=== PATIENT | female | born 1950 | race Caucasian/White ===

== ENCOUNTER → 2017-06-12 11:01 | Outpatient (CLI) | payer MEDICAID, SELFPAY ==
[2017-06-12 12:23] LABS: Absolute Lymphocyte Count 2.63 X10^3/ul (0.83-4.51); Absolute Neutrophil Count 7.3 X10^3/uL (2.0-7.7); Basophil# 0.02 X10^3/uL; Basophil% 0.2 % (0-1); Eosinophil# 0.12 X10^3/uL; Eosinophils% 1.1 % (0-5); Hematocrit 38.2 % (37-47); Hemoglobin 12.1 g/dl (12.0-15.0); Lymphocyte # 2.63 X10^3/ul (4.0); Lymphocyte % 24.1 % (19-41); Mean Corp Hgb Conc 31.7 g/gl (32-36); Mean Corpuscular Hgb 29.1 pg (27.0-32.0); Mean Corpuscular Volume 91.8 fL (81-99); Monocyte# 0.76 X10^3/uL; Neutrophil # 7.34 X10^3/uL (2.7-7.7); Neutrophil % 67.3 % (47-70); Platelet Count 287 K/mm3 (150-450); RBC Distribution Width CV 14.5 % (11.6-14.6); RBC Distribution Width SD 47.4 fl (35.1-43.9); Red Blood Count 4.16 M/mm3 (4.2-5.4); White Blood Count 10.9 K/mm3 (4.4-11.0)
[2017-06-12 12:34] LABS: POSITIVE COUNT NO; POSITIVE DIFFERENTIAL NO; POSITIVE MORPHOLOGY NO
[2017-06-12 12:53] LABS: ALB/GLOB Ratio 0.6 RATIO (0.9-2.4); AST(SGOT) 11 U/L (15-37); Alanine Aminotransfer ALT/SGPT 18 U/L (13-56); Albumin, Serum 2.9 g/dL (3.2-5.0); Alkaline Phosphatase 102 U/L (45-117); Anion Gap 11 (5-15); BUN 10 mg/dL (7-18); BUN/Creat Ratio 10.6 RATIO (10-20); Calcium,Total 8.6 mg/dL (8.5-10.1); Chloride 104 mmol/L (98-107); Creatinine, Serum 0.95 mg/dL (0.55-1.02); EST Glomerular Filtration Rate 63 mL/min (>60); Est Glom Filt Rate - Afr Amer 76 mL/min (>60); Globulin 4.8 g/dL (2.2-4.2); Glucose 128 mg/dL (74-106); Potassium 3.8 mmol/L (3.5-5.1); Protein, Total 7.7 g/dL (6.4-8.2); Sodium Level 141 mmol/L (136-145); Thyroid Stim Hormone (TSH) 0.03 uIU/mL (0.358-3.74)
[2017-06-13 09:28] LABS: Hep C Antibodies <0.1 s/co ratio (0.0-0.9)
== END ==
PROVIDERS: Family Provider Family Medicine Geriatric Medicine; PCP Family Medicine Geriatric Medicine; Visit Provider Family Medicine Geriatric Medicine
DX: I10 Essential (primary) hypertension (principal); Z13.89 Encounter for screening for other disorder
CPT/HCPCS: 36415; 80053; 84443; 85025; 86803

== ENCOUNTER → 2017-06-16 12:55 | Outpatient (CLI) | payer MEDICAID, SELFPAY ==
--- NOTE | 2017-06-16 12:59 | RAD_ITS ---
STUDY: X-RAY - RIGHT KNEE REASON FOR EXAM: Female, 66 years old. Pain, fall, bruising lateral aspect of the knee TECHNIQUE: 4 view(s) of the knee. COMPARISON: 04/21/2016 FINDINGS: Total knee arthroplasty in anatomic alignment. No acute cortical disruption or osseous malalignment. Normal bone interface. Normal proximal tibiofibular articulation. There is a soft tissue prominence in the suprapatellar region suggesting a small volume joint effusion. The soft tissue structures are unremarkable. RAD/Knee 4 or More Views IMPRESSION: Total knee arthroplasty in anatomic alignment without acute osseous or hardware injury detected. Electronically Signed: Dejah Dumont MD at 9:02 EDT , Service support ,
== END ==
PROVIDERS: Family Provider Family Medicine Geriatric Medicine; PCP Family Medicine Geriatric Medicine; Visit Provider Family Medicine Geriatric Medicine
DX: M25.569 Pain in unspecified knee (principal)
CPT/HCPCS: 73564

== ENCOUNTER 2017-06-28 23:07 | Inpatient (IN) | payer MEDICAID, SELFPAY ==
[2017-06-28 23:07] VITALS: BP 144/98; PULSE 120; RESP 20; TEMP 36.9; O2SAT 99; BMI 51.5
--- NOTE | 2017-06-28 23:16 | ED.RN ---
unable to complete at this time. pt unable to verbalize medications. no other family available or aware of meds at this time.
--- NOTE | 2017-06-28 23:25 | RAD_ITS ---
XR Knee 3 Views INDICATION: FALL, KNEE PAIN COMPARISON: None TECHNIQUE: 3 views of the right knee FINDINGS: There is evidence of a right total knee arthroplasty with components in expected position. No significant joint effusion. No evidence of fracture. Marginal osteophytes are noted. RAD/Knee 3 Views IMPRESSION: Right total knee arthroplasty. No evidence of fracture. at 0012 Reported and signed by: Marie Moreira MD Electronically Signed: Marie Moreira MD at 23:10 EDT Tel , Service support ,
--- NOTE | 2017-06-28 23:25 | CT_ITS ---
CT Lower Extremity W/ Contrast INDICATION: S/P FALL TONIGHT, C/O LEFT THIGH PAIN WITH VISIBLE HEMATOMA, LEFT HIP PAIN ALSO, HX HTN, KS, HIP ORIF COMPARISON: None TECHNIQUE: High-resolution axial CT imaging of the left hip with coronal and sagittal reformatted images. Radiation dose of demonstration technique applied. FINDINGS: Marked soft tissue swelling is seen overlying the left hip and proximal femur with a subcutaneous approximately 8 cm hyperdense collection, compatible with a hematoma. There is evidence of a left total hip arthroplasty. The acetabulum and pelvis appear intact as far as seen. The components of the prosthesis appear properly positioned. A fracture is not identified. CT/Extremity Lower WITH Contrast IMPRESSION: Left total hip arthroplasty. No evidence of acute fracture. If symptoms persist, consider further evaluation with nuclear medicine bone scan. Large subcutaneous hematoma overlying the left hip and proximal femur. at 0033 Reported and signed by: Marie Moreira MD Electronically Signed: Marie Moreira MD at 23:31 EDT Tel , Service support ,
[2017-06-28 23:51] LABS: Absolute Lymphocyte Count 1.37 X10^3/ul (0.83-4.51); Absolute Neutrophil Count 7.6 X10^3/uL (2.0-7.7); Basophil# 0.02 X10^3/uL; Basophil% 0.2 % (0-1); Eosinophil# 0.13 X10^3/uL; Eosinophils% 1.3 % (0-5); Hematocrit 35.6 % (37-47); Lymphocyte # 1.37 X10^3/ul (4.0); Mean Corp Hgb Conc 30.9 g/gl (32-36); Mean Corpuscular Hgb 28.4 pg (27.0-32.0); Mean Platelet Vol. 9.3 fl (6.2-12.0); Monocyte# 0.66 X10^3/uL; Monocyte% 6.7 % (0-10); Neutrophil # 7.58 X10^3/uL (2.7-7.7); Neutrophil % 77.3 % (47-70); Platelet Count 229 K/mm3 (150-450); RBC Distribution Width CV 14.6 % (11.6-14.6); RBC Distribution Width SD 48.8 fl (35.1-43.9); Red Blood Count 3.87 M/mm3 (4.2-5.4); White Blood Count 9.8 K/mm3 (4.4-11.0)
[2017-06-28 23:52] LABS: POSITIVE COUNT NO; POSITIVE DIFFERENTIAL NO; POSITIVE MORPHOLOGY NO
[2017-06-29] VITALS (15 sets, daily range): BP systolic 108–147; BP diastolic 63–128; PULSE 72–101; RESP 16–20; TEMP 36.6–37.3; O2SAT 96–100; BMI 49.9; BMI 50.0
--- NOTE | 2017-06-29 00:11 | EKG12_ITS ---
Test Reason : FALL Blood Pressure : / mmHG Vent. Rate : 102 BPM Atrial Rate : 054 BPM P-R Int : 000 ms QRS Dur : 082 ms QT Int : 328 ms P-R-T Axes : 000 -01 066 degrees QTc Int : 427 ms Atrial fibrillation Nonspecific T wave abnormality Abnormal ECG Confirmed by COLE COWART, FERCHO ([id number]), assistant editor MARCIAL GUILLEN ([id number] on 07/04/2017 9:01:13 AM Referred By: [email or web address] Confirmed By:FERCHO GALVAN MD
--- NOTE | 2017-06-29 00:18 | RAD_ITS ---
XR Chest 1 View INDICATION: A-FIBCHRONIC COUGH COMPARISON: September 21, 2015 TECHNIQUE: Frontal view of the chest FINDINGS: The heart size is enlarged. Bilateral hilar regions are prominent. There is no evidence focalconsolidation or pleural effusion. Osseous structures are unremarkable. RAD/Chest 1 View (Portable) IMPRESSION: Mild cardiomegaly. Bilateral hilar regions appear prominent, unchanged compared to 2016. at 0055 Reported and signed by: Marie Moreira MD Electronically Signed: Marie Moreira MD at 23:53 EDT Tel , Service support ,
[2017-06-29 00:20] LABS: Anion Gap 9 (5-15); BUN 12 mg/dL (7-18); BUN/Creat Ratio 11.7 RATIO (10-20); Calcium,Total 8.7 mg/dL (8.5-10.1); Chloride 108 mmol/L (98-107); Creatinine, Serum 1.03 mg/dL (0.55-1.02); EST Glomerular Filtration Rate 57 mL/min (>60); Est Glom Filt Rate - Afr Amer 69 mL/min (>60); Estimated Creatinine Clearance 45.65 ml/min; Glucose 197 mg/dL (74-106); Potassium 3.7 mmol/L (3.5-5.1); Sodium Level 145 mmol/L (136-145)
[2017-06-29 00:31] LABS: Prothrombin Time (Protime)PT. 13.5 SECONDS (11.7-14.9)
--- NOTE | 2017-06-29 00:41 | ED.VISSUMM ---
- ER Visit Summary Date of Service: 06/29/17 Chief Complaint: Fall History of Present Illness: The patient is a 66 F who presents after a fall. She has a history of diabetes hypertension and hyperlipidemia. She had a same level fall. She uses a walker. Her walker tipped. She denies any head injury or loss of consciousness. She complains of right knee pain as well as left thigh and buttock pain and noticed a large area of swelling on her posterior left thigh. She otherwise denies any recent illness. No fever chest pain shortness of breath vomiting diarrhea or rash. Physical Examination: Afebrile initial heart rate 120 Heart is irregular and tachycardic Lungs are clear Abdomen soft Active full range of motion ?4 extremities she does have some tenderness of the right knee and a large left thigh hematoma Skin tear to right forearm GCS of 15 with no focal or lateralizing neurological deficits Test Results: EKG shows atrial fibrillation at a rate of 102. Laboratory studies notable for hemoglobin 11.0. Creatinine 1.03. INR troponin pending at the time of this dictation. Knee x-ray shows a prior right total knee arthroplasty. Chest x-ray showed no acute process on my review. CT of the lower extremity shows prior left total hip arthroplasty and a large subcutaneous hematoma measuring 8 cm. Emergency Department Course and Treatment: I was concerned about the patient's large thigh hematoma. A CT was obtained to define dimensions. Her hemoglobin is 11. She was noted to have an irregular tachycardic rhythm and EKG was obtained which shows A. fib at rate of 102. She denies history of atrial fibrillation. Her heart rate has ranged from 105-120. IV metoprolol has been ordered. Her chads 2 score is 2 however I would defer on anticoagulation given her new thigh hematoma and would monitor hemoglobins and the size of the hematoma before initiating anticoagulation. She was discussed with the hospitalist and will be admitted. Treatment Plan: [] Disposition: Admit Impression: New onset atrial fibrillation with RVR Left thigh hematoma This note was generated with Figure 1 dictation software. It may contain incorrect words, spelling, and punctuation that were not noted in review of the chart prior to signing ED Disposition - Plan for ED Patient: Chief Complaint: Fall Referrals: Marito De La Torre Chi, MD [Primary Care Provider] -
[2017-06-29] MEDS: Metoprolol Tartrate 5 MG/5 ML Vial IV (00:54)
--- NOTE | 2017-06-29 00:58 | PCM.HP.STD ---
Problem List (1) Hypothyroidism Status: Chronic (2) Morbid obesity due to excess calories Status: Chronic (3) Persistent atrial fibrillation Status: Chronic (4) Nonrheumatic aortic (valve) stenosis Status: Chronic (5) Hypertension Status: Chronic (6) Diabetes mellitus type II, uncontrolled Status: Chronic (7) Hyperlipidemia Status: Chronic History of Present Illness Date of Admission: 06/29/17 Chief Complaint: Fall, left hip/left thigh pain. The patient is a 66 year old F with past medical history as mentioned above presented to the emergency room because of fall followed by left hip and left thigh pain. Patient uses walker at home and somehow, she lost her balance and she fell on her left buttock and she started having pain at the back of her left thigh. She described this pain as sharp pain, 7 out of 10 in severity, it is around the left buttock and back of the left thigh, not radiating, aggravated by movement or when her left thigh touches the floor of the bed and without other associated symptoms. She denied any prodromal symptoms before she had this fall such as chest pain, shortness of breath, dizziness, lightheadedness, syncope or presyncope. She denied abdominal pain, nausea vomiting. She denies cough or sputum production. In the emergency room, she was noted to be in A. fib with RVR, heart rate has been jumping from 105-130s, blood pressure was stable and her pulse ox was 99% on room air. Her routine blood work is remarkable for chronic anemia, hemoglobin of 11 g/dL, otherwise unremarkable. Troponin is negative. EKG revealed A. fib with RVR, rate of around 107, no acute ischemic changes. Pro time and INR were normal. X-ray of the right knee revealed no acute fractures, revealed right total knee replacement. CT scan of the left lower extremity revealed large subcutaneous hematoma of the left hip and proximal femur measuring about 8 cm without evidence of acute fractures or dislocations. She is being admitted for mechanical fall complicated by large subcutaneous hematoma of the left hip/left proximal femur and also because of A. fib with RVR. Past Medical History Past Medical History (Chronic Problems): Chronic Problems Hypothyroidism (Chronic) Morbid obesity due to excess calories (Chronic) Persistent atrial fibrillation (Chronic) Nonrheumatic aortic (valve) stenosis (Chronic) Nonrheumatic pulmonary valve insufficiency (Chronic) Hypertension (Chronic) Diabetes mellitus type II, uncontrolled (Chronic) Hyperlipidemia (Chronic) Allergies bee venom protein (honey bee) Allergy (Verified 06/28/17 23:10) Swelling oxytetracycline [From Terramycin] Allergy (Verified 06/28/17 23:10) Unknown oxytetracycline HCl [From Terramycin] Allergy (Verified 06/28/17 23:10) Unknown Penicillins Allergy (Verified 06/28/17 23:10) Other Sulfa (Sulfonamide Antibiotics) Allergy (Verified 06/28/17 23:10) Other Bleach (Sodium Hypochlorite) Adverse Reaction (Verified 06/28/17 23:10) Nausea/Vom/Diarrhea ASPERTANE Allergy (Uncoded 06/28/17 23:10) Food Allergy Home Medications: Ambulatory Orders Medication Instructions Recorded Amitriptyline HCl [Elavil] 25 mg PO DAILY 09/21/15 Ergocalciferol [Vitamin D] 50,000 unit PO Q7D 09/21/15 Furosemide [Lasix] 20 mg PO DAILY 09/21/15 Levothyroxine Sodium [Synthroid] 137 mcg PO DAILY 09/21/15 Lorazepam [Ativan] 1 mg PO DAILY 09/21/15 Meclizine HCl [Antivert] 25 mg PO TID PRN PRN 09/21/15 Metformin HCl [Metformin HCl ER] 1,000 mg PO BID 09/21/15 Metoprolol Tartrate [Lopressor 25 mg PO DAILY 09/21/15 (Beta Esvin)] Omeprazole [Prilosec] 20 mg PO DAILY 09/21/15 Potassium Chloride [K-Tab ER] 20 meq PO DAILY 09/21/15 traZODone [Desyrel] 100 mg PO QHS 09/21/15 Atorvastatin Calcium [Lipitor] 40 mg PO DAILY 06/28/16 Levetiracetam 500 mg PO BID 06/28/16 Meloxicam [Mobic] 7.5 mg PO DAILY 06/28/16 Venlafaxine HCl [Effexor] 75 mg PO BID 06/28/16 Glimepiride [Amaryl] 4 mg PO BID 10/01/16 Nystatin Powder [Mycostatin Powder] 1 applic TOPICAL BID PRN PRN 10/01/16 Sennosides/Docusate Sodium 2 tab PO BID 10/01/16 [Doc-Q-Lax Tablet] Surgical History: appendectomy, cholecystectomy, hysterectomy, total hip arthroplasty, total knee arthroplasty Psychiatric History: No pertinent psych hx Smoking Status: Never smoker Alcohol: None Drugs: None - *Family History Maternal History Items: No pertinent history Paternal History Items: No pertinent history Review of Systems Constitutional: Denies: Anorexia, Chills, Fever, Weakness Eyes: Denies: Blurred vision, Double vision, Drainage, Redness HEENT: Denies: Difficulty Hearing, Ear Pain, Eye Pain, Nasal Congestion, Sore Throat Cardiovascular: Denies: Chest Pain, Chest Pressure, Chest Tightness, Edema, Heaviness, Light Headedness, Palpitations, Syncope Respiratory: Denies: Cough, Pleuritic Pain, Shortness of Breath, Sputum production, Wheezing Gastrointestinal: Denies: Abdominal Pain, Constipation, Diarrhea, Nausea, Vomiting Genitourinary: Reports: Incontinence. Denies: Dysuria, Frequency, Hematuria Musculoskeletal: Reports: Joint Pain, Muscle pain. Denies: Arm Pain, Back Pain Skin: Denies: Dryness, Rash Neurological: Denies: Balance problems, Double vision, Change in Speech, Confusion, Headaches, Incoordination, Numbness Psychiatric: Reports: Depression. Denies: Anxiety Endocrine: Denies: Change in Body Habitus, Polydipsia VTE Information - Inpt Only VTE Present on Admission: No VTE Mechan Device Prophylaxis: SCD's VTE Pharm Prophylaxis ordered?: No - Physical Exam General: Alert, Oriented x3, Cooperative, No apparent distress HEENT: Atraumatic, PERRLA, EOMI Oral: Moist Mucosa, No Gingival or Mucosal Lesions/ Ulcerations Neck: Supple, No JVD, Negative Carotid Bruits, Trachea Midline, Thyroid Normal Size and Texture Lungs: Clear to auscultation, No rhonchi, No wheeze, No rales, Diminished Cardiovascular: Normal S1, Normal S2, No murmurs, PMI Normal, Irregular Rate, Tachycardic Abdomen: Bowel Sounds Present, Soft, Non Tender, Non-Distended, No Hepato-splenomegaly, Obese Extremities: No clubbing, No cyanosis, Edema - Trace edema., - - Large subcutaneous hematoma on the posterior aspect of the left thigh measuring about 6 x 8 cm, firm to palpation with overlying bruises. Lymphatic: No Cervical, Supraclavicular, or Inguinal Adenopathy Neurological: Cranial nerves II-XII grossly intact, Motor Exam 5/5 strength throughout Psych/Mental Status: Normal Affect, Appropriate, Alert and oriented to time, place, person, mood and affect Vital Signs Temp Pulse Resp BP Pulse Ox 98.4 F 101 H 20 H 147/128 H 98 06/28/17 23:07 06/29/17 00:55 06/29/17 00:55 06/29/17 00:55 06/29/17 00:55 Oxygen Delivery Method Room Air Weight: 291 lb 0.163 oz Body Mass Index (BMI) 51.5 Finger Stick Blood Glucose 128 Laboratory Tests Past 24 Hrs 06/28/17 06/28/17 06/28/17 23:38 23:38 23:38 WBC 9.8 RBC 3.87 L Hgb 11.0 L Hct 35.6 L MCV 92.0 MCH 28.4 MCHC 30.9 L RDW 14.6 RDW Differential 48.8 H Plt Count 229 MPV 9.3 Immature Gran % (Auto) 0.500 Neut % (Auto) 77.3 H Lymph % (Auto) 14.0 L Pierce % (Auto) 6.7 Eos % (Auto) 1.3 Baso % (Auto) 0.2 Absolute Neuts (auto) 7.6 Absolute Lymphs (auto) 1.37 Total Counted Not Reportable PT 13.5 INR 1.0 Sodium 145 Potassium 3.7 Chloride 108 H Carbon Dioxide 28.0 Anion Gap 9 BUN 12 Creatinine 1.03 H Estim Creat Clear Calc 45.65 Est GFR (MDRD) Af Amer 69 Est GFR (MDRD) Non-Af 57 L BUN/Creatinine Ratio 11.7 Glucose 197 H Calcium 8.7 Troponin I 06/28/17 23:38 WBC RBC Hgb Hct MCV MCH MCHC RDW RDW Differential Plt Count MPV Immature Gran % (Auto) Neut % (Auto) Lymph % (Auto) Pierce % (Auto) Eos % (Auto) Baso % (Auto) Absolute Neuts (auto) Absolute Lymphs (auto) Total Counted PT INR Sodium Potassium Chloride Carbon Dioxide Anion Gap BUN Creatinine Estim Creat Clear Calc Est GFR (MDRD) Af Amer Est GFR (MDRD) Non-Af BUN/Creatinine Ratio Glucose Calcium Troponin I < 0.02 Clinical Impression(s) from Imaging Studies Knee X-Ray 06/28/17 23:25 IMPRESSION: Right total knee arthroplasty. No evidence of fracture. at 0012 Reported and signed by: Marie Moreira MD Electronically Signed: Marie Moreira MD at 23:10 EDT Tel , Service support , Lower Extremity CT 06/28/17 23:25 IMPRESSION: Left total hip arthroplasty. No evidence of acute fracture. If symptoms persist, consider further evaluation with nuclear medicine bone scan. Large subcutaneous hematoma overlying the left hip and proximal femur. at 0033 Reported and signed by: Marie Moreira MD Electronically Signed: Marie Moreira MD at 23:31 EDT Tel , Service support , Chest X-Ray 06/29/17 00:18 IMPRESSION: Mild cardiomegaly. Bilateral hilar regions appear prominent, unchanged compared to 2016. at 0055 Reported and signed by: Marie Moreira MD Electronically Signed: Marie Moreira MD at 23:53 EDT Tel , Service support , Assessment/Plan This is a 66 years old female patient presented to the emergency room because of fall and left hip/left thigh pain, found to have large subcutaneous hematoma of the left hip/left proximal femur and also found to have A. fib with RVR. #1 mechanical fall/large subcutaneous hematoma of the left hip/left proximal femur: Secondary to mechanical fall without prodromal symptoms. She was found to be in A. fib with RVR after arrival to ER and she was asymptomatic with it. CT scan of the left lower extremity reviewed as above, no acute fractures. X-ray of the right knee showed no acute fractures as well. Patient's hemoglobin is stable at her baseline. Her pro time, INR and platelet counts are normal. Plan: Admit to PCU, cardiac monitoring, IV morphine as needed for pain, Tylenol as needed, general surgery consult for possible evacuation, repeat CBC and BMP tomorrow morning, PT OT evaluation and treat. #2 A. fib with RVR: She does have history of atrial fibrillation and she underwent cardioversion on Jul, 2015. I am not sure if she has been under control since then. In the ER, heart rate has been significantly fluctuating from 105 up to 130. EKG reviewed, revealed A. fib with RVR, no acute ischemic changes. First troponin is negative. Plan: Cardiac monitoring, serial cardiac enzymes, 2D echocardiogram, check serum TSH, continue p.o. metoprolol and start IV metoprolol as needed for rate control, replace electrolytes as appropriate, cardiology consult. Her [id number] score for atrial fibrillation stroke risk is three-point and she is at moderate to high risk and she is a candidate for anticoagulation but at this time with the large subcutaneous hematoma, anticoagulation is contraindicated. #3 type 2 diabetes mellitus: ADA diet, Accu-Cheks, insulin sliding scale, continue home medication when home medication list updated. #4 hypertension: Blood pressure stable, continue metoprolol. #5 hypothyroidism: Continue levothyroxine, check TSH. #6 history of atrial fibrillation: Status post cardioversion in Jul, 2015, plan as above. #7 DVT prophylaxis: SCDs. This note was generated with Baloonr dictation software. It may contain incorrect words, spelling, and punctuation that were not noted in checking the note before signing. Code Visit Inpatient E&M: 85116 Init Hosp L3
--- NOTE | 2017-06-29 01:05 | HP.PCM_ITS ---
Problem List (1) Hypothyroidism Status: Chronic (2) Morbid obesity due to excess calories Status: Chronic (3) Persistent atrial fibrillation Status: Chronic (4) Nonrheumatic aortic (valve) stenosis Status: Chronic (5) Hypertension Status: Chronic (6) Diabetes mellitus type II, uncontrolled Status: Chronic (7) Hyperlipidemia Status: Chronic History of Present Illness Date of Admission: 06/29/17 Chief Complaint: Fall, left hip/left thigh pain. The patient is a 66 year old F with past medical history as mentioned above presented to the emergency room because of fall followed by left hip and left thigh pain. Patient uses walker at home and somehow, she lost her balance and she fell on her left buttock and she started having pain at the back of her left thigh. She described this pain as sharp pain, 7 out of 10 in severity, it is around the left buttock and back of the left thigh, not radiating, aggravated by movement or when her left thigh touches the floor of the bed and without other associated symptoms. She denied any prodromal symptoms before she had this fall such as chest pain, shortness of breath, dizziness, lightheadedness, syncope or presyncope. She denied abdominal pain, nausea vomiting. She denies cough or sputum production. In the emergency room, she was noted to be in A. fib with RVR, heart rate has been jumping from 105-130s, blood pressure was stable and her pulse ox was 99% on room air. Her routine blood work is remarkable for chronic anemia, hemoglobin of 11 g/dL, otherwise unremarkable. Troponin is negative. EKG revealed A. fib with RVR, rate of around 107, no acute ischemic changes. Pro time and INR were normal. X-ray of the right knee revealed no acute fractures, revealed right total knee replacement. CT scan of the left lower extremity revealed large subcutaneous hematoma of the left hip and proximal femur measuring about 8 cm without evidence of acute fractures or dislocations. She is being admitted for mechanical fall complicated by large subcutaneous hematoma of the left hip/left proximal femur and also because of A. fib with RVR. Past Medical History Past Medical History (Chronic Problems): Chronic Problems Hypothyroidism (Chronic) Morbid obesity due to excess calories (Chronic) Persistent atrial fibrillation (Chronic) Nonrheumatic aortic (valve) stenosis (Chronic) Nonrheumatic pulmonary valve insufficiency (Chronic) Hypertension (Chronic) Diabetes mellitus type II, uncontrolled (Chronic) Hyperlipidemia (Chronic) Allergies bee venom protein (honey bee) Allergy (Verified 06/28/17 23:10) Swelling oxytetracycline [From Terramycin] Allergy (Verified 06/28/17 23:10) Unknown oxytetracycline HCl [From Terramycin] Allergy (Verified 06/28/17 23:10) Unknown Penicillins Allergy (Verified 06/28/17 23:10) Other Sulfa (Sulfonamide Antibiotics) Allergy (Verified 06/28/17 23:10) Other Bleach (Sodium Hypochlorite) Adverse Reaction (Verified 06/28/17 23:10) Nausea/Vom/Diarrhea ASPERTANE Allergy (Uncoded 06/28/17 23:10) Food Allergy Home Medications: Ambulatory Orders Medication Instructions Recorded Amitriptyline HCl [Elavil] 25 mg PO DAILY 09/21/15 Ergocalciferol [Vitamin D] 50,000 unit PO Q7D 09/21/15 Furosemide [Lasix] 20 mg PO DAILY 09/21/15 Levothyroxine Sodium [Synthroid] 137 mcg PO DAILY 09/21/15 Lorazepam [Ativan] 1 mg PO DAILY 09/21/15 Meclizine HCl [Antivert] 25 mg PO TID PRN PRN 09/21/15 Metformin HCl [Metformin HCl ER] 1,000 mg PO BID 09/21/15 Metoprolol Tartrate [Lopressor 25 mg PO DAILY 09/21/15 (Beta Esvin)] Omeprazole [Prilosec] 20 mg PO DAILY 09/21/15 Potassium Chloride [K-Tab ER] 20 meq PO DAILY 09/21/15 traZODone [Desyrel] 100 mg PO QHS 09/21/15 Atorvastatin Calcium [Lipitor] 40 mg PO DAILY 06/28/16 Levetiracetam 500 mg PO BID 06/28/16 Meloxicam [Mobic] 7.5 mg PO DAILY 06/28/16 Venlafaxine HCl [Effexor] 75 mg PO BID 06/28/16 Glimepiride [Amaryl] 4 mg PO BID 10/01/16 Nystatin Powder [Mycostatin Powder] 1 applic TOPICAL BID PRN PRN 10/01/16 Sennosides/Docusate Sodium 2 tab PO BID 10/01/16 [Doc-Q-Lax Tablet] Surgical History: appendectomy, cholecystectomy, hysterectomy, total hip arthroplasty, total knee arthroplasty Psychiatric History: No pertinent psych hx Smoking Status: Never smoker Alcohol: None Drugs: None - *Family History Maternal History Items: No pertinent history Paternal History Items: No pertinent history Review of Systems Constitutional: Denies: Anorexia, Chills, Fever, Weakness Eyes: Denies: Blurred vision, Double vision, Drainage, Redness HEENT: Denies: Difficulty Hearing, Ear Pain, Eye Pain, Nasal Congestion, Sore Throat Cardiovascular: Denies: Chest Pain, Chest Pressure, Chest Tightness, Edema, Heaviness, Light Headedness, Palpitations, Syncope Respiratory: Denies: Cough, Pleuritic Pain, Shortness of Breath, Sputum production, Wheezing Gastrointestinal: Denies: Abdominal Pain, Constipation, Diarrhea, Nausea, Vomiting Genitourinary: Reports: Incontinence. Denies: Dysuria, Frequency, Hematuria Musculoskeletal: Reports: Joint Pain, Muscle pain. Denies: Arm Pain, Back Pain Skin: Denies: Dryness, Rash Neurological: Denies: Balance problems, Double vision, Change in Speech, Confusion, Headaches, Incoordination, Numbness Psychiatric: Reports: Depression. Denies: Anxiety Endocrine: Denies: Change in Body Habitus, Polydipsia VTE Information - Inpt Only VTE Present on Admission: No VTE Mechan Device Prophylaxis: SCD's VTE Pharm Prophylaxis ordered?: No - Physical Exam General: Alert, Oriented x3, Cooperative, No apparent distress HEENT: Atraumatic, PERRLA, EOMI Oral: Moist Mucosa, No Gingival or Mucosal Lesions/ Ulcerations Neck: Supple, No JVD, Negative Carotid Bruits, Trachea Midline, Thyroid Normal Size and Texture Lungs: Clear to auscultation, No rhonchi, No wheeze, No rales, Diminished Cardiovascular: Normal S1, Normal S2, No murmurs, PMI Normal, Irregular Rate, Tachycardic Abdomen: Bowel Sounds Present, Soft, Non Tender, Non-Distended, No Hepato- splenomegaly, Obese Extremities: No clubbing, No cyanosis, Edema - Trace edema., - - Large subcutaneous hematoma on the posterior aspect of the left thigh measuring about 6 x 8 cm, firm to palpation with overlying bruises. Lymphatic: No Cervical, Supraclavicular, or Inguinal Adenopathy Neurological: Cranial nerves II-XII grossly intact, Motor Exam 5/5 strength throughout Psych/Mental Status: Normal Affect, Appropriate, Alert and oriented to time, place, person, mood and affect Vital Signs Temp Pulse Resp BP Pulse Ox 98.4 F 101 H 20 H 147/128 H 98 06/28/17 23:07 06/29/17 00:55 06/29/17 00:55 06/29/17 00:55 06/29/17 00:55 Oxygen Delivery Method Room Air Weight: 291 lb 0.163 oz Body Mass Index (BMI) 51.5 Finger Stick Blood Glucose 128 Laboratory Tests Past 24 Hrs 06/28/17 06/28/17 06/28/17 23:38 23:38 23:38 WBC 9.8 RBC 3.87 L Hgb 11.0 L Hct 35.6 L MCV 92.0 MCH 28.4 MCHC 30.9 L RDW 14.6 RDW Differential 48.8 H Plt Count 229 MPV 9.3 Immature Gran % (Auto) 0.500 Neut % (Auto) 77.3 H Lymph % (Auto) 14.0 L Nicholas % (Auto) 6.7 Eos % (Auto) 1.3 Baso % (Auto) 0.2 Absolute Neuts (auto) 7.6 Absolute Lymphs (auto) 1.37 Total Counted Not Reportable PT 13.5 INR 1.0 Sodium 145 Potassium 3.7 Chloride 108 H Carbon Dioxide 28.0 Anion Gap 9 BUN 12 Creatinine 1.03 H Estim Creat Clear Calc 45.65 Est GFR (MDRD) Af Amer 69 Est GFR (MDRD) Non-Af 57 L BUN/Creatinine Ratio 11.7 Glucose 197 H Calcium 8.7 Troponin I 06/28/17 23:38 WBC RBC Hgb Hct MCV MCH MCHC RDW RDW Differential Plt Count MPV Immature Gran % (Auto) Neut % (Auto) Lymph % (Auto) Nicholas % (Auto) Eos % (Auto) Baso % (Auto) Absolute Neuts (auto) Absolute Lymphs (auto) Total Counted PT INR Sodium Potassium Chloride Carbon Dioxide Anion Gap BUN Creatinine Estim Creat Clear Calc Est GFR (MDRD) Af Amer Est GFR (MDRD) Non-Af BUN/Creatinine Ratio Glucose Calcium Troponin I < 0.02 Clinical Impression(s) from Imaging Studies Knee X-Ray 06/28/17 23:25 IMPRESSION: Right total knee arthroplasty. No evidence of fracture. at 0012 Reported and signed by: Marie Moreira MD Electronically Signed: Marie Moreira MD at 23:10 EDT Tel , Service support , Lower Extremity CT 06/28/17 23:25 IMPRESSION: Left total hip arthroplasty. No evidence of acute fracture. If symptoms persist, consider further evaluation with nuclear medicine bone scan. Large subcutaneous hematoma overlying the left hip and proximal femur. at 0033 Reported and signed by: Marie Moreira MD Electronically Signed: Marie Moreira MD at 23:31 EDT Tel , Service support , Chest X-Ray 06/29/17 00:18 IMPRESSION: Mild cardiomegaly. Bilateral hilar regions appear prominent, unchanged compared to 2016. at 0055 Reported and signed by: Marie Moreira MD Electronically Signed: Marie Moreira MD at 23:53 EDT Tel , Service support , Assessment/Plan This is a 66 years old female patient presented to the emergency room because of fall and left hip/left thigh pain, found to have large subcutaneous hematoma of the left hip/left proximal femur and also found to have A. fib with RVR. #1 mechanical fall/large subcutaneous hematoma of the left hip/left proximal femur: Secondary to mechanical fall without prodromal symptoms. She was found to be in A. fib with RVR after arrival to ER and she was asymptomatic with it. CT scan of the left lower extremity reviewed as above, no acute fractures. X- ray of the right knee showed no acute fractures as well. Patient's hemoglobin is stable at her baseline. Her pro time, INR and platelet counts are normal. Plan: Admit to PCU, cardiac monitoring, IV morphine as needed for pain, Tylenol as needed, general surgery consult for possible evacuation, repeat CBC and BMP tomorrow morning, PT OT evaluation and treat. #2 A. fib with RVR: She does have history of atrial fibrillation and she underwent cardioversion on Jul, 2015. I am not sure if she has been under control since then. In the ER, heart rate has been significantly fluctuating from 105 up to 130. EKG reviewed, revealed A. fib with RVR, no acute ischemic changes. First troponin is negative. Plan: Cardiac monitoring, serial cardiac enzymes, 2D echocardiogram, check serum TSH, continue p.o. metoprolol and start IV metoprolol as needed for rate control, replace electrolytes as appropriate, cardiology consult. Her [id number] score for atrial fibrillation stroke risk is three-point and she is at moderate to high risk and she is a candidate for anticoagulation but at this time with the large subcutaneous hematoma, anticoagulation is contraindicated. #3 type 2 diabetes mellitus: ADA diet, Accu-Cheks, insulin sliding scale, continue home medication when home medication list updated. #4 hypertension: Blood pressure stable, continue metoprolol. #5 hypothyroidism: Continue levothyroxine, check TSH. #6 history of atrial fibrillation: Status post cardioversion in Jul, 2015, plan as above. #7 DVT prophylaxis: SCDs. This note was generated with [employer] dictation software. It may contain incorrect words, spelling, and punctuation that were not noted in checking the note before signing. Code Visit Inpatient E&M: 39305 Init Hosp L3
--- NOTE | 2017-06-29 01:11 | ECHOD_ITS ---
Reason For Study: A. fib/flutter Procedure This was a 2D Doppler, Color Flow transthoracic echocardiogram. Exam performed portable in patient room. Left Ventricle Normal LV size. Left ventricular systolic function is normal. The estimated ejection fraction is 55 %. Unable to assess diastolic dysfunction. No regional wall motion abnormalities noted. Right Ventricle Normal RV size. Normal systolic function. Atria Normal left atrium. Normal right atrium. Mitral Valve Mitral valve not well visualized. Tricuspid Valve The tricuspid valve is not well visualized. Mild (1+) tricuspid valve insufficiency. Pulmonary artery systolic pressure is 28 mmHg. Aortic Valve The aortic valve is not well visualized. Pulmonic Valve Normal pulmonic valve. Mild (1+) pulmonic valve insufficiency. Great Vessels Normal aortic root. The pulmonary artery is normal size. Normal inferior vena cava. Pericardium/Pleural No pericardial effusion. Medication Diluted definity 4ml given slow IV push to enhance endocardial definition. MMode/2D Measurements & Calculations Ao root diam: 3.2 cm LA dimension: 4.6 cm Doppler Measurements & Calculations MV E max avni: 137.2 cm/sec Ao V2 max: 183.9 cm/sec LV V1 max: 99.0 cm/sec Ao max P.6 mmHg LV V1 max P.0 mmHg PA V2 max: 110.0 cm/sec TR max avni: 245.4 cm/sec TR max P.1 mmHg Interpretation Summary Normal LV size. Left ventricular systolic function is normal. The estimated ejection fraction is 55 %. Unable to assess diastolic dysfunction. Mild (1+) tricuspid valve insufficiency. Pulmonary artery systolic pressure is 28 mmHg. Contrast injection was performed. Ordering Physician: Michael Smith Referring Physician: Marito De La Torre Chi Performed By: Kim Keenan RDCS
[2017-06-29 01:36] LABS: Thyroid Stim Hormone (TSH) 0.12 uIU/mL (0.358-3.74)
[2017-06-29] MEDS: 0.9% Normal Saline 1,000 ML 75 ML IV (02:11)
[2017-06-29 07:06] LABS: Bedside Glucose 187 mg/dL (70-110)
--- NOTE | 2017-06-29 08:24 | PCM.CONS.C ---
Reason for Consult Date of Consultation: 06/29/17 Reason for Consultation: Atrial fibrillation. History of Present Illness: The patient is a 66 year old F with past medical history as mentioned above presented to the emergency room because of fall followed by left hip and left thigh pain. Patient uses walker at home and somehow, she lost her balance and she fell on her left buttock and she started having pain at the back of her left thigh. She described this pain as sharp pain, 7 out of 10 in severity, it is around the left buttock and back of the left thigh, not radiating, aggravated by movement or when her left thigh touches the floor of the bed and without other associated symptoms. She denied any prodromal symptoms before she had this fall such as chest pain, shortness of breath, dizziness, lightheadedness, syncope or presyncope. She denied abdominal pain, nausea vomiting. She denies cough or sputum production. In the emergency room, she was noted to be in A. fib with RVR, heart rate has been jumping from 105-130s, blood pressure was stable and her pulse ox was 99% on room air. Her routine blood work is remarkable for chronic anemia, hemoglobin of 11 g/dL, otherwise unremarkable. Troponin is negative. EKG revealed A. fib with RVR, rate of around 107, no acute ischemic changes. Pro time and INR were normal. X-ray of the right knee revealed no acute fractures, revealed right total knee replacement. CT scan of the left lower extremity revealed large subcutaneous hematoma of the left hip and proximal femur measuring about 8 cm without evidence of acute fractures or dislocations. She is being admitted for mechanical fall complicated by large subcutaneous hematoma of the left hip/left proximal femur and also because of A. fib with RVR. Cardiology was consulted to see her because of the atrial fibrillation. Past Medical History Allergies/Adverse Reactions: Allergies bee venom protein (honey bee) Allergy (Verified 06/28/17 23:10) Swelling oxytetracycline [From Terramycin] Allergy (Verified 06/28/17 23:10) Unknown oxytetracycline HCl [From Terramycin] Allergy (Verified 06/28/17 23:10) Unknown Penicillins Allergy (Verified 06/28/17 23:10) Other Sulfa (Sulfonamide Antibiotics) Allergy (Verified 06/28/17 23:10) Other Bleach (Sodium Hypochlorite) Adverse Reaction (Verified 06/28/17 23:10) Nausea/Vom/Diarrhea ASPERTANE Allergy (Uncoded 06/28/17 23:10) Food Allergy Home Medications: Ambulatory Orders Medication Instructions Recorded Amitriptyline HCl [Elavil] 25 mg PO DAILY 09/21/15 Ergocalciferol [Vitamin D] 50,000 unit PO Q7D 09/21/15 Furosemide [Lasix] 20 mg PO DAILY 09/21/15 Levothyroxine Sodium [Synthroid] 137 mcg PO DAILY 09/21/15 Lorazepam [Ativan] 1 mg PO DAILY 09/21/15 Meclizine HCl [Antivert] 25 mg PO TID PRN PRN 09/21/15 Metformin HCl [Metformin HCl ER] 1,000 mg PO BID 09/21/15 Metoprolol Tartrate [Lopressor 25 mg PO DAILY 09/21/15 (Beta Esvin)] Omeprazole [Prilosec] 20 mg PO DAILY 09/21/15 Potassium Chloride [K-Tab ER] 20 meq PO DAILY 09/21/15 traZODone [Desyrel] 100 mg PO QHS 09/21/15 Atorvastatin Calcium [Lipitor] 40 mg PO DAILY 06/28/16 Levetiracetam 500 mg PO BID 06/28/16 Meloxicam [Mobic] 7.5 mg PO DAILY 06/28/16 Venlafaxine HCl [Effexor] 75 mg PO BID 06/28/16 Glimepiride [Amaryl] 4 mg PO BID 10/01/16 Nystatin Powder [Mycostatin Powder] 1 applic TOPICAL BID PRN PRN 10/01/16 Sennosides/Docusate Sodium 2 tab PO BID 10/01/16 [Doc-Q-Lax Tablet] Past Medical History (Chronic Problems): Chronic Problems Hypothyroidism (Chronic) Morbid obesity due to excess calories (Chronic) Persistent atrial fibrillation (Chronic) Nonrheumatic aortic (valve) stenosis (Chronic) Nonrheumatic pulmonary valve insufficiency (Chronic) Hypertension (Chronic) Diabetes mellitus type II, uncontrolled (Chronic) Hyperlipidemia (Chronic) Surgical History: appendectomy, cholecystectomy, hysterectomy, total hip arthroplasty, total knee arthroplasty Psychiatric History: No pertinent psych hx - *Family History Maternal History Items: No pertinent history Paternal History Items: No pertinent history Smoking Status: Never smoker Alcohol: None Drugs: None Review of Systems - Review of Systems General: Denies: Fever, Night Sweats, Fatigue Cardiovascular: Denies: Chest Discomfort, Shortness of Breath, Orthopnea, PND, Peripheral Edema, Palpitations, Lightheadedness, Dizziness, Near Syncope, Syncope Respiratory: Denies: Cough, Sputum Production, Hemoptysis Gastrointestinal: Denies: Hematemesis, Hematochezia, Melena Genitourinary: Denies: Dysuria, Hematuria Skin: Denies: Rash Subjectve: Pleasant lady in no apparent distress Objective: Vital Signs Temp Pulse Resp BP Pulse Ox 98.3 F 93 18 140/69 H 99 06/29/17 02:26 06/29/17 07:11 06/29/17 02:26 06/29/17 02:27 06/29/17 02:26 Oxygen Delivery Method Room Air Weight: 282 lb 3.067 oz Body Mass Index (BMI) 49.9 Intake and Output for Last 24 Hours 06/27/17 06/28/17 06/29/17 23:59 23:59 23:59 Intake Total 275 / 275 Balance 275 / 275 General: Awake, Alert, Oriented x 3, Obese HEENT: PERRL, EOMI, Sclera Non Icteric Neck: Supple, Good ROM, No Lymph Node Enlargement Lungs: Clear to auscultation Cardiovascular: Irregular Rhythm, Normal S1, Normal S2, No Murmurs, No Rubs, No Gallops Vascular: No Carotid Bruits, Normal Femoral Pulses, Normal Radial Pulses, Normal Dorsalis Pedal Pulse, Normal Posterior Tibial Pulses Abdomen: Bowel Sounds Present, Soft, Non Tender, No HSM, No Organomegaly Extremities: No Cyanosis, No Clubbing, No edema Neurological: No Focal Motor or Sensory Deficit 06/29/17 03:48: Troponin I < 0.02 06/29/17 07:25: Troponin I < 0.02 Rhythm: EKG: Atrial fibrillation with rapid ventricular response rate of 107 bpm Assessment/Plan 1. Atrial fibrillation-rapid ventricular response rate duration unknown. Patient presented with a fall and was noted to be in atrial fibrillation unbeknownst to her. The duration is unclear. She does have evidence of a large subcutaneous hematoma and at this time I do agree that despite the fact that her chads vascular score is high her risk for bleeding is rather high and therefore anticoagulation will be contraindicated. An echocardiogram should be performed to assess her left ventricular function and she will be placed on the beta-esvin at a higher dose for rate control. Further recommendations will depend on the course of her leg hematoma and improvement. There is an apparent history of a previous cardioversion the patient says that she does not recollect this. 2. Hypertension. Patient appears to be well controlled at this particular time and no other changes will be made. Her beta blockers will be continued. 3. Obesity She probably has sleep apnea which may be contributing to the atrial fibrillation. This will need to be evaluated at some point. Thank you for allowing me to participate in the care of your patient. Please don't hesitate to call if any issues arise
[2017-06-29] MEDS: Metoprolol Tartrate 50 MG Tablet PO ×2 (08:30→22:04)
[2017-06-29 11:25] LABS: Bedside Glucose 138 mg/dL (70-110)
--- NOTE | 2017-06-29 14:59 | CASEMGMT ---
As per CM, pt has [employer] services at home. SW called [employer] in [facility], ([phone]), pt's nurse case manager is Ashlie Morgan, however she is out today. CASSY spoke w/operations and intelligence assistant Den, let her know pt is here in the hospital. Den states pt has the following services: [employer] for aide services, one hour on Monday and one hour on , [facility] [employer], social work counseling, and pull-ups. Pt also has an ERS button. If pt goes home on the weekend, CASSY can leave a message for Ashlie at [phone]. BELEN Enciso, FURNACE ATTENDANT
[2017-06-29 16:25] LABS: Bedside Glucose 147 mg/dL (70-110)
--- NOTE | 2017-06-29 17:05 | CCHN_ITS ---
Hospitalist Note The patient was admitted earlier today by Dr. Wilson and I reviewed his H& P. I also saw the patient, evaluated her and obtained relevant history, performed a clinical exam reviewed diagnostic data. e is a 66 years old female patient presented to the ED s/p fall and left hip/ left thigh pain, found to have large subcutaneous hematoma of the left thigh. Plan is to hold off on anticoagulation and monitor. We will monitor H&H
[2017-06-29 18:25] LABS: Hematocrit 35.2 % (37-47)
[2017-06-29] MEDS: Venlafaxine HCl 75 MG Tablet PO (22:03)
[2017-06-29] MEDS: Meclizine HCl 25 MG Tablet PO (22:03)
[2017-06-29] MEDS: Atorvastatin Calcium 80 MG Tablet PO (22:03)
[2017-06-29] MEDS: traZODone 100 MG Tablet PO (22:03)
[2017-06-29] MEDS: levETIRAcetam 500 MG Tablet PO (22:04)
[2017-06-29] MEDS: Amitriptyline 25 MG Tablet PO (22:04)
[2017-06-29] MEDS: 0.9% NaCl Peripheral Flush Adult/Peds IV (22:05)
[2017-06-29 22:41] LABS: Bedside Glucose 151 mg/dL (70-110)
[2017-06-30 02:36] VITALS: BP 140/77; PULSE 82; RESP 14; TEMP 37; O2SAT 97
[2017-06-30 03:03] VITALS: PULSE 74
[2017-06-30] MEDS: Levothyroxine 125 MCG Tablet PO (05:38)
[2017-06-30] MEDS: Meclizine HCl 25 MG Tablet PO (05:38)
[2017-06-30 06:04] LABS: Hematocrit 31.4 % (37-47); Hemoglobin 9.7 g/dl (12.0-15.0)
[2017-06-30 06:54] VITALS: PULSE 86
[2017-06-30 07:01] LABS: Bedside Glucose 150 mg/dL (70-110)
[2017-06-30] MEDS: Glimepiride 4 MG Tablet PO (07:56)
[2017-06-30 08:35] VITALS: BP 145/75; PULSE 75; RESP 16; TEMP 36.3; O2SAT 100
--- NOTE | 2017-06-30 09:06 | DS.PCM_ITS ---
Discharge Date and Diagnosis Date of Admission: 06/29/17 Date of Discharge: 06/30/17 - Secondary Discharge Diagnosis Chronic Problems Hypothyroidism (Chronic) Morbid obesity due to excess calories (Chronic) Persistent atrial fibrillation (Chronic) Nonrheumatic aortic (valve) stenosis (Chronic) Nonrheumatic pulmonary valve insufficiency (Chronic) Hypertension (Chronic) Diabetes mellitus type II, uncontrolled (Chronic) Hyperlipidemia (Chronic) Hospital Course and Treatment Summary of Care Provided: This is a 66 years old female patient presented to the ED s/p fall and left hip/ left thigh pain, found to have large subcutaneous hematoma of the left thigh. Her anticoagulation will monitor to H and H. Her hemoglobin dropped to 9.6 and she was started on oral iron she did not require blood transfusion. she continued to do well and was discharged home in stable condition. physical exam at the time of discharge; vital signs were stable. He was alert and oriented to time place and person. He did not appear to be any form of distress. S1 and S2 heard no murmur or gallop Lung exam was clear to auscultation with no adventitious sounds. Abdomen was soft nontender with normal bowel sounds. extremity exam did not reveal any edema, palpable pulses bilaterally. Neurologic exam was grossly intact. Home Medications: Medications to take at Discharge Amitriptyline HCl [Elavil] 25 mg PO QHS 09/21/15 Ergocalciferol [Vitamin D] 50,000 unit PO Q7D 09/21/15 Furosemide [Lasix] 20 mg PO DAILY 09/21/15 Levothyroxine Sodium [Synthroid] 125 mcg PO DAILY 09/21/15 Lorazepam [Ativan] 1 mg PO DAILY 09/21/15 Meclizine HCl [Antivert] 25 mg PO TID 09/21/15 Metformin HCl [Metformin HCl ER] 1,000 mg PO BID 09/21/15 Omeprazole [Prilosec] 20 mg PO DAILY 09/21/15 Potassium Chloride [K-Tab ER] 20 meq PO BID 09/21/15 traZODone [Desyrel] 100 mg PO QHS 09/21/15 Levetiracetam 500 mg PO BID 06/28/16 Meloxicam [Mobic] 7.5 mg PO DAILY 06/28/16 Venlafaxine HCl [Effexor] 75 mg PO BID 04/04/17 Glimepiride [Amaryl] 4 mg PO BID 10/01/16 Nystatin Powder [Mycostatin Powder] 1 applic TOPICAL BID PRN PRN 10/01/16 Sennosides/Docusate Sodium [Doc-Q-Lax Tablet] 1 tab PO BID 10/01/16 Albuterol IH (ProAir) [Proair Hfa] 2 puff INHALATION BID 06/29/17 Famotidine [Pepcid] 40 mg PO DAILY 06/29/17 Iron Polysaccharide Complex [Ferric X-150] 150 mg PO DAILY #30 cap 06/30/17 Oxycodone [Oxyir] 5 mg PO Q4H PRN PRN #20 tab 06/30/17 Following Prescrptions Were Given to Patient: Oxycodone [Oxyir] 5 mg PO Q4H PRN PRN #20 tab PRN Reason: Moderate Pain (pain scale 4-5) Iron Polysaccharide Complex [Ferric X-150] 150 mg PO DAILY #30 cap Primary Care Physician: Marito De La Torre Chi, MD [Primary Care Provider] - In 1 Week Medical Necessity - Tobacco Use Smoking Status: Never smoker Meaningful Use Info Meaningful Use Diagnoses (Choose all that apply): None applicable Code Visit OBSV E&M: 55037 Observation care discharge
--- NOTE | 2017-06-30 09:08 | PCM.PN.CARD ---
Subjectve: Patient seen and evaluated. Appears to be doing much better. Objective: Vital Signs Temp Pulse Resp BP Pulse Ox 97.4 F L 75 16 145/75 H 100 06/30/17 08:35 06/30/17 08:35 06/30/17 08:35 06/30/17 08:35 06/30/17 08:35 Oxygen Delivery Method Room Air Weight: 282 lb 3.067 oz Body Mass Index (BMI) 49.9 Intake and Output for Last 24 Hours 06/28/17 06/29/17 06/30/17 23:59 23:59 23:59 Intake Total 1775 60 60 Balance 1775 60 General: Awake, Alert, Oriented x 3 HEENT: PERRL, EOMI, Sclera Non Icteric Neck: Supple, Good ROM, No Lymph Node Enlargement Lungs: Clear to auscultation Cardiovascular: Irregular Rhythm, Normal S1, Normal S2, No Murmurs, No Rubs, No Gallops Vascular: No Carotid Bruits, Normal Femoral Pulses, Normal Radial Pulses, Normal Dorsalis Pedal Pulse, Normal Posterior Tibial Pulses Abdomen: Bowel Sounds Present, Soft, Non Tender, No HSM, No Organomegaly Extremities: No Cyanosis, No Clubbing, No edema Neurological: No Focal Motor or Sensory Deficit 06/29/17 13:40: Troponin I < 0.02 06/29/17 18:04: Hgb 11.0 L, Hct 35.2 L 06/30/17 05:35: Hgb 9.7 L, Hct 31.4 L Rhythm: EKG: ECHO: Stress Test: Cardiac Cath: PCI: CT Surgery: Holter monitor: EPS: PPM: CXR: Chest CT Scan: Medical Necessity - Tobacco Use Smoking Status: Never smoker Assessment/Plan 1. Atrial fibrillation-rapid ventricular response rate duration unknown. Patient presented with a fall and was noted to be in atrial fibrillation unbeknownst to her. The duration is unclear. She does have evidence of a large subcutaneous hematoma and at this time I do agree that despite the fact that her chads vascular score is high her risk for bleeding is rather high and therefore anticoagulation will be contraindicated. Further recommendations will depend on the course of her leg hematoma and improvement. There is an apparent history of a previous cardioversion the patient says that she does not recollect this. Echocardiogram demonstrated preserved left ventricular systolic function. She will be seen as an outpatient and then further recommendations made as to when to start anticoagulation and possible cardioversion. 2. Hypertension. Patient appears to be well controlled at this particular time and no other changes will be made. Her beta blockers will be continued. 3. Obesity She probably has sleep apnea which may be contributing to the atrial fibrillation. This will need to be evaluated at some point. Thank you for allowing me to participate in the care of your patient. Please don't hesitate to call if any issues arise
--- NOTE | 2017-06-30 09:10 | PCM.DC ---
You will use the following diet at home:: Regular Discharge Activity: Return to Normal Activity Allergies/Adverse Reactions: Allergies bee venom protein (honey bee) Allergy (Verified 06/28/17 23:10) Swelling oxytetracycline [From Terramycin] Allergy (Verified 06/28/17 23:10) Unknown oxytetracycline HCl [From Terramycin] Allergy (Verified 06/28/17 23:10) Unknown Penicillins Allergy (Verified 06/28/17 23:10) Other Sulfa (Sulfonamide Antibiotics) Allergy (Verified 06/28/17 23:10) Other Bleach (Sodium Hypochlorite) Adverse Reaction (Verified 06/28/17 23:10) Nausea/Vom/Diarrhea ASPERTANE Allergy (Uncoded 06/28/17 23:10) Food Allergy Medications to take at Discharge Amitriptyline HCl [Elavil] 25 mg PO QHS 09/21/15 Ergocalciferol [Vitamin D] 50,000 unit PO Q7D 09/21/15 Furosemide [Lasix] 20 mg PO DAILY 09/21/15 Levothyroxine Sodium [Synthroid] 125 mcg PO DAILY 09/21/15 Lorazepam [Ativan] 1 mg PO DAILY 09/21/15 Meclizine HCl [Antivert] 25 mg PO TID 09/21/15 Metformin HCl [Metformin HCl ER] 1,000 mg PO BID 09/21/15 Omeprazole [Prilosec] 20 mg PO DAILY 09/21/15 Potassium Chloride [K-Tab ER] 20 meq PO BID 09/21/15 traZODone [Desyrel] 100 mg PO QHS 09/21/15 Levetiracetam 500 mg PO BID 06/28/16 Meloxicam [Mobic] 7.5 mg PO DAILY 06/28/16 Venlafaxine HCl [Effexor] 75 mg PO BID 06/28/16 Glimepiride [Amaryl] 4 mg PO BID 10/01/16 Nystatin Powder [Mycostatin Powder] 1 applic TOPICAL BID PRN PRN 10/01/16 Sennosides/Docusate Sodium [Doc-Q-Lax Tablet] 1 tab PO BID 10/01/16 Albuterol IH (ProAir) [Proair Hfa] 2 puff INHALATION BID 06/29/17 Famotidine [Pepcid] 40 mg PO DAILY 06/29/17 Iron Polysaccharide Complex [Ferric X-150] 150 mg PO DAILY #30 cap 06/30/17 Oxycodone [Oxyir] 5 mg PO Q4H PRN PRN #20 tab 06/30/17 The following prescriptions were given: Oxycodone [Oxyir] 5 mg PO Q4H PRN PRN #20 tab PRN Reason: Moderate Pain (pain scale 4-5) Iron Polysaccharide Complex [Ferric X-150] 150 mg PO DAILY #30 cap Primary Care Physician: Marito De La Torre Chi, MD [Primary Care Provider] - In 1 Week Proposed Discharge Date: 06/30/17
[2017-06-30 09:46] VITALS: BP 145/75; PULSE 75
[2017-06-30] MEDS: levETIRAcetam 500 MG Tablet PO (09:46)
[2017-06-30] MEDS: Famotidine 20 MG Tablet 40 MG PO (09:46)
[2017-06-30] MEDS: Venlafaxine HCl 75 MG Tablet PO (09:46)
[2017-06-30] MEDS: Meloxicam 7.5 MG Tablet PO (09:46)
[2017-06-30] MEDS: Pantoprazole Sodium 20 MG Tablet PO (09:46)
[2017-06-30] MEDS: LORazepam 1 MG Tablet PO (09:46)
[2017-06-30] MEDS: Metoprolol Tartrate 50 MG Tablet PO (09:46)
--- NOTE | 2017-06-30 09:47 | CASEMGMT ---
Social Work Pt ready for d/c today. Met with pt in room and she is planning on returning home with continuation of passport services. Pt ex will be staying with her and transport her home. SW placed call to Passport manager case management Ashlie and informed her of pt d/c and she will arrange for services to restart. No further needs. DESIRE Miranda
--- NOTE | 2017-06-30 14:31 | CASEMGMT ---
Face to Face with patient for initial transition planning/care coordination assessment. FILOMENA BELTRAN introduced self and role at [facility], pt voices understanding and consents to assessment at this time. Pt is lying in bed in no distress at this time. Pt is A/O x4 at this time and answers all questions appropriately at this time. Care providers, pharmacy, and demographics verified. See attached link. Pt voices no further concerns/needs at this time. Advised pt to ask for CM if any further questions/concerns/needs arise, voices understanding. PLAN: [place] FILOMENA BELTRAN
--- NOTE | 2017-07-03 14:44 | CASEMGMT ---
FILOMENA BELTRAN Discharge Follow-up Phone Call: Date: 07/03/17 Time: 1450 Duration: 10 minutes Mrs. Concepcion reports feeling sore since leaving the hospital, but reports she has been able to walk without difficulty. FILOMENA BELTRAN noted on d/c instructions, patient was provided a prescription for OxyIr. FILOMENA BELTRAN asked if Mrs. Concepcion was able to obtain this medication for pain. Patient at first replied she was not given a script for pain medicine, then patient's spouse said yes you were, and I picked it up. Patient then reported she hasn't needed to take it because the pain isn't that bad. FILOMNEA BELTRAN inquired if patient or spouse had questions re: d/c instructions and both report no. Patient states she did not know she was supposed to follow-up with Dr. De La Torre and agrees to let FILOMENA BELTRAN call Dr. De La Torre's office to request an appnt. Patient's spouse asks that Dr. De La Torre's nursing secretary call him to schedule. FILOMENA BELTRAN left message for Dr. De La Torre's office to call patient with appnt time. The patient reports she will call Dr. De La Torre's office if she has any further healthcare questions or concerns. Sharee King BSN, RN-BC, CCM
== END 2017-06-30 11:27 | disposition home or self-care (01) | DRG 138 ==
LOC: ED 06-29 00:40 → PCU 06-29 00:54
PROVIDERS: Admitting Provider Hospitalist; Emergency Provider Emergency Medicine; Family Provider Family Medicine Geriatric Medicine; PCP Family Medicine Geriatric Medicine; Visit Provider Internal Medicine
DX: I48.1 Persistent atrial fibrillation (principal); I37.1 Nonrheumatic pulmonary valve insufficiency; E11.65 Type 2 diabetes mellitus with hyperglycemia; I35.0 Nonrheumatic aortic (valve) stenosis; S70.12XA Contusion of left thigh, initial encounter; W01.0XXA Fall on same level from slipping, tripping and stumbling without subsequent striking against object, initial encounter; E03.9 Hypothyroidism, unspecified; E78.5 Hyperlipidemia, unspecified; I10 Essential (primary) hypertension; E66.01 Morbid (severe) obesity due to excess calories; Z96.651 Presence of right artificial knee joint; Z68.43 Body mass index [BMI] 50.0-59.9, adult; Y93.89 Activity, other specified; Y92.9 Unspecified place or not applicable; Y99.9 Unspecified external cause status
CPT/HCPCS: 36415; 71045; 73562; 73701; 80048; 82962; 84443; 84484; 85014; 85018; 85025; 85610; 93005; 93306; 97162; 97166; 97802; 99284; J7030; Q9957; Q9967; A4216

== ENCOUNTER → 2017-09-01 10:04 | Outpatient (CLI) | payer MEDICAID, SELFPAY ==
--- NOTE | 2017-09-01 10:04 | DT_ITS ---
This patient was seen during an EMR downtime August 28, 2017 - September 04, 2017. This patient may have a combination of paper and electronic documentation or all paper documentation. All documentation is viewable within the e-chart portion of [employer] for each patient visit.
== END ==
PROVIDERS: Family Provider Family Medicine Geriatric Medicine; PCP Family Medicine Geriatric Medicine; Visit Provider Family Medicine Geriatric Medicine
DX: R42 Dizziness and giddiness (principal); E86.0 Dehydration
CPT/HCPCS: J7030; A4216

== ENCOUNTER 2017-09-03 18:07 | Inpatient (IN) | payer MEDICAID, SELFPAY ==
--- NOTE | 2017-09-03 13:11 | EKG12_ITS ---
Test Reason : CP Blood Pressure : / mmHG Vent. Rate : 132 BPM Atrial Rate : 138 BPM P-R Int : 000 ms QRS Dur : 080 ms QT Int : 286 ms P-R-T Axes : 000 -05 083 degrees QTc Int : 423 ms Atrial fibrillation Nonspecific ST and T wave abnormality Abnormal ECG Confirmed by COLE COWART, FERCHO ([id number]), videotape editor MARCIAL GUILLEN ([id number]) on 09/06/2017 5:45:37 PM Referred By: Svia Mantilla Confirmed By:FERCHO GALVAN MD
--- NOTE | 2017-09-03 18:25 | RAD_ITS ---
STUDY: X-RAY CHEST REASON FOR EXAM: Female, 66 years old. Chest pain TECHNIQUE: Single AP portable view of the chest. COMPARISON: 09/21/2015, 06/29/2017. FINDINGS: Normal lung volumes. Cannot exclude a nodule in the right upper lobe versus density from the anterior aspect of the right first rib. However this appearance was not present previously. Therefore CT scan is recommended. No definite infiltrates or effusions. There is borderline cardiomegaly. Normal mediastinum and shabana. Normal visualized pulmonary arteries. Normal visualized aortic arch and descending thoracic aorta. Normal visualized thoracic spine. Normal visualized ribs, clavicles, and shoulders. There is no demonstrated abnormality of the visualized soft tissue structures of the upper abdomen. RAD/Chest 1 View IMPRESSION: Cannot exclude 1.4 cm nodule in the right upper lobe. CT scan recommended. Otherwise negative exam. Electronically Signed: Eduard Billingsley MD at 19:15 EDT , Service support ,
--- NOTE | 2017-09-03 21:30 | DT_ITS ---
This patient was seen during an EMR downtime August 28, 2017 - September 04, 2017. This patient may have a combination of paper and electronic documentation or all paper documentation. All documentation is viewable within the e-chart portion of [employer] for each patient visit.
[2017-09-04] MEDS: dilTIAZem CD 180 MG Capsule PO (02:40)
--- NOTE | 2017-09-04 05:55 | RAD_ITS ---
STUDY: X-RAY CHEST REASON FOR EXAM: Female, 66 years old. Atrial fibrillation TECHNIQUE: 2 views COMPARISON: June 29, 2017 FINDINGS: The heart is normal in size and the lungs are clear. No pleural effusions.. A thoracic scoliosis with convexity to the right. Kyphoplasty at L1. Degenerative changes of the thoracic spine. Normal visualized ribs, clavicles, and shoulders. There is no demonstrated abnormality of the visualized soft tissue structures of the upper abdomen. RAD/Chest PA and Lateral IMPRESSION: No acute findings in the lungs. No pleural effusions Electronically Signed: Arnulfo Norwood, at 6:10 EDT Tel , Service support ,
[2017-09-04] MEDS: Nystatin Powder 15gm Bottle 1 APPLIC TOPICAL (06:00)
[2017-09-04] MEDS: Levothyroxine 125 MCG Tablet PO (06:00)
[2017-09-04 06:14] LABS: Absolute Lymphocyte Count 2.63 X10^3/ul (0.83-4.51); Absolute Neutrophil Count 5.6 X10^3/uL (2.0-7.7); Basophil# 0.02 X10^3/uL; Basophil% 0.2 % (0-1); Eosinophil# 0.11 X10^3/uL; Eosinophils% 1.2 % (0-5); Hematocrit 33.8 % (37-47); Hemoglobin 10.6 g/dl (12.0-15.0); Lymphocyte # 2.63 X10^3/ul (4.0); Lymphocyte % 29.1 % (19-41); Mean Corp Hgb Conc 31.4 g/gl (32-36); Mean Corpuscular Hgb 28.3 pg (27.0-32.0); Mean Corpuscular Volume 90.4 fL (81-99); Mean Platelet Vol. 9.9 fl (6.2-12.0); Monocyte# 0.67 X10^3/uL; Monocyte% 7.4 % (0-10); Neutrophil # 5.57 X10^3/uL (2.7-7.7); Neutrophil % 61.8 % (47-70); Platelet Count 207 K/mm3 (150-450); RBC Distribution Width CV 14.7 % (11.6-14.6); RBC Distribution Width SD 47.4 fl (35.1-43.9); Red Blood Count 3.74 M/mm3 (4.2-5.4)
[2017-09-04 06:43] LABS: POSITIVE COUNT NO; POSITIVE DIFFERENTIAL NO; POSITIVE MORPHOLOGY NO
[2017-09-04 06:54] LABS: Anion Gap 10 (5-15); BUN 16 mg/dL (7-18); BUN/Creat Ratio 18.5 RATIO (10-20); Calcium,Total 8.1 mg/dL (8.5-10.1); Chloride 109 mmol/L (98-107); Cholesterol 180 mg/dL (200); Creatinine, Serum 0.87 mg/dL (0.55-1.02); EST Glomerular Filtration Rate 70 mL/min (>60); Est Glom Filt Rate - Afr Amer 84 mL/min (>60); Glucose 128 mg/dL (74-106); High Density Lipoprotein 39 mg/dL; Magnesium 2.2 mg/dL (1.6-2.6); Potassium 3.4 mmol/L (3.5-5.1); Sodium Level 146 mmol/L (136-145); Triglycerides 191 mg/dL; Very Low Density Lipoprotein 38 mg/dL (5-40)
[2017-09-04] MEDS: Ferrous Sulfate 325 MG Tablet PO (08:00)
[2017-09-04 10:57] VITALS: PULSE 88
[2017-09-04] MEDS: levETIRAcetam 500 MG Tablet PO (11:56)
[2017-09-04] MEDS: Furosemide 20 MG Tablet PO (11:56)
[2017-09-04] MEDS: Venlafaxine HCl 75 MG Tablet PO (11:56)
[2017-09-04] MEDS: Famotidine 20 MG Tablet PO (11:57)
--- NOTE | 2017-09-04 12:01 | CASEMGMT ---
SW met with patient, introduced self and role at [facility]. Confirmed demographics and contact information. Patient is active with the waiver program. She has aides 2 hours on Tuesdays and for help with personal care and homemaker services. She has a lifeline button. She gets home delivered meals. Her Estate Conservator is Ashlie and her number is [phone]. Patient plans on returning home and was interested in home PT/OT. CASSY told her we could set this up. Mila ESCALERA MSW
[2017-09-04 12:02] VITALS: PULSE 95
[2017-09-04] MEDS: Metoprolol Tartrate 50 MG Tablet PO (12:02)
--- NOTE | 2017-09-04 12:07 | CASEMGMT ---
Patient's daughter called [facility] and asked to have a Classics Professor call her. SW spoke with patient as she is alert and oriented and asked her if she would be okay with SW calling her daughter. She said, No, she will just tell you I'm crazy and need committed. At this time patient is not in agreement with SW calling her daughter so SW will not be calling her back. Plan: Home with resumption of waiver services. CASSY will also add PT/OT. Mila ESCALERA MSW
[2017-09-04] MEDS: Enoxaparin 40 MG/0.4 ML Syringe SC (12:09)
[2017-09-04] MEDS: LORazepam 1 MG Tablet PO (12:09)
[2017-09-04 12:10] LABS: Bedside Glucose 119 mg/dL (70-110)
--- NOTE | 2017-09-04 12:39 | PCM.DC ---
You will use the following diet at home:: Calorie/Carbohydrate Controlled (specify 1200, 1400, etc), Cardiac Discharge Activity: Return to Normal Activity, - - Fall precautions. Call your doctor if you observe: Dizziness, Fainting spells, Chest pain, Increased palpitations (irregular heartbeat) Allergies/Adverse Reactions: Allergies bee venom protein (honey bee) Allergy (Verified 06/28/17 23:10) Swelling oxytetracycline [From Terramycin] Allergy (Verified 06/28/17 23:10) Unknown oxytetracycline HCl [From Terramycin] Allergy (Verified 06/28/17 23:10) Unknown Penicillins Allergy (Verified 06/28/17 23:10) Other Sulfa (Sulfonamide Antibiotics) Allergy (Verified 06/28/17 23:10) Other Bleach (Sodium Hypochlorite) Adverse Reaction (Verified 06/28/17 23:10) Nausea/Vom/Diarrhea ASPERTANE Allergy (Uncoded 06/28/17 23:10) Food Allergy Medications to take at Discharge Ergocalciferol [Vitamin D] 50,000 unit PO Q7D 09/21/15 Furosemide [Lasix] 20 mg PO DAILY 09/21/15 Levothyroxine Sodium [Synthroid] 125 mcg PO DAILY 09/21/15 Lorazepam [Ativan] 1 mg PO DAILY 09/21/15 Meclizine HCl [Antivert] 25 mg PO TID 09/21/15 Metformin HCl [Metformin HCl ER] 1,000 mg PO BID 09/21/15 Omeprazole [Prilosec] 20 mg PO DAILY 09/21/15 Potassium Chloride [K-Tab ER] 20 meq PO BID 09/21/15 traZODone [Desyrel] 100 mg PO QHS 09/21/15 Levetiracetam 500 mg PO BID 06/28/16 Meloxicam [Mobic] 7.5 mg PO DAILY 06/28/16 Venlafaxine HCl [Effexor] 75 mg PO BID 06/28/16 Glimepiride [Amaryl] 4 mg PO BID 10/01/16 Nystatin Powder [Mycostatin Powder] 1 applic TOPICAL BID PRN PRN 10/01/16 Albuterol IH (ProAir) [Proair Hfa] 2 puff INHALATION BID 06/29/17 Famotidine [Pepcid] 40 mg PO DAILY 06/29/17 Oxycodone [Oxyir] 5 mg PO Q4H PRN PRN #20 tab 06/30/17 Atorvastatin Calcium 80 mg PO QHS 09/04/17 Diclofenac Sodium 25 mg PO BID 09/04/17 Diltiazem CD [Cardizem CD] 180 mg PO DAILY #30 cap 09/04/17 Docusate Sodium [Colace] 100 mg PO BID 09/04/17 Iron Polysaccharide Complex [Ferric X-150] 150 mg PO DAILY 09/04/17 Metoprolol Tartrate [Lopressor (beta erin)] 50 mg PO BID #60 tab 09/04/17 Paroxetine [Paxil] 40 mg PO QHS 09/04/17 The following prescriptions were given: Diltiazem CD [Cardizem CD] 180 mg PO DAILY #30 cap Metoprolol Tartrate [Lopressor (beta erin)] 50 mg PO BID #60 tab Primary Care Physician: Marito De La Torre Chi, MD [Primary Care Provider] - Please follow up with your Primary Care Physician in: 1 Week Please Follow Up With: Troy Holley MD When: 1-2 Weeks, may see VICE PRESIDENT OF DEVELOPMENT/PA Proposed Discharge Date: 09/04/17
--- NOTE | 2017-09-04 12:43 | DCINST_ITS ---
You will use the following diet at home:: Calorie/Carbohydrate Controlled ( specify 1200, 1400, etc), Cardiac Discharge Activity: Return to Normal Activity, - - Fall precautions. Call your doctor if you observe: Dizziness, Fainting spells, Chest pain, Increased palpitations (irregular heartbeat) Allergies/Adverse Reactions: Allergies bee venom protein (honey bee) Allergy (Verified 06/28/17 23:10) Swelling oxytetracycline [From Terramycin] Allergy (Verified 06/28/17 23:10) Unknown oxytetracycline HCl [From Terramycin] Allergy (Verified 06/28/17 23:10) Unknown Penicillins Allergy (Verified 06/28/17 23:10) Other Sulfa (Sulfonamide Antibiotics) Allergy (Verified 06/28/17 23:10) Other Bleach (Sodium Hypochlorite) Adverse Reaction (Verified 06/28/17 23:10) Nausea/Vom/Diarrhea ASPERTANE Allergy (Uncoded 06/28/17 23:10) Food Allergy Medications to take at Discharge Ergocalciferol [Vitamin D] 50,000 unit PO Q7D 09/21/15 Furosemide [Lasix] 20 mg PO DAILY 09/21/15 Levothyroxine Sodium [Synthroid] 125 mcg PO DAILY 09/21/15 Lorazepam [Ativan] 1 mg PO DAILY 09/21/15 Meclizine HCl [Antivert] 25 mg PO TID 09/21/15 Metformin HCl [Metformin HCl ER] 1,000 mg PO BID 09/21/15 Omeprazole [Prilosec] 20 mg PO DAILY 09/21/15 Potassium Chloride [K-Tab ER] 20 meq PO BID 09/21/15 traZODone [Desyrel] 100 mg PO QHS 09/21/15 Levetiracetam 500 mg PO BID 06/28/16 Meloxicam [Mobic] 7.5 mg PO DAILY 06/28/16 Venlafaxine HCl [Effexor] 75 mg PO BID 06/28/16 Glimepiride [Amaryl] 4 mg PO BID 10/01/16 Nystatin Powder [Mycostatin Powder] 1 applic TOPICAL BID PRN PRN 10/01/16 Albuterol IH (ProAir) [Proair Hfa] 2 puff INHALATION BID 06/29/17 Famotidine [Pepcid] 40 mg PO DAILY 06/29/17 Oxycodone [Oxyir] 5 mg PO Q4H PRN PRN #20 tab 06/30/17 Atorvastatin Calcium 80 mg PO QHS 09/04/17 Diclofenac Sodium 25 mg PO BID 09/04/17 Diltiazem CD [Cardizem CD] 180 mg PO DAILY #30 cap 09/04/17 Docusate Sodium [Colace] 100 mg PO BID 09/04/17 Iron Polysaccharide Complex [Ferric X-150] 150 mg PO DAILY 09/04/17 Metoprolol Tartrate [Lopressor (beta erin)] 50 mg PO BID #60 tab 09/04/17 Paroxetine [Paxil] 40 mg PO QHS 09/04/17 The following prescriptions were given: Diltiazem CD [Cardizem CD] 180 mg PO DAILY #30 cap Metoprolol Tartrate [Lopressor (beta erin)] 50 mg PO BID #60 tab Primary Care Physician: Marito De La Torre Chi, MD [Primary Care Provider] - Please follow up with your Primary Care Physician in: 1 Week Please Follow Up With: Troy Holley MD When: 1-2 Weeks, may see CHIEF SCIENTIST/PA Proposed Discharge Date: 09/04/17
--- NOTE | 2017-09-04 12:47 | PCM.DC.SUM ---
<Jhoana Kulkarni - Last Filed: 09/04/17 12:56> Discharge Date and Diagnosis Date of Admission: 09/03/17 Date of Discharge: 09/04/17 - Primary Discharge Diagnosis 1. Persistent atrial fibrillation with RVR 2. Hypomagnesia-resolved. - Secondary Discharge Diagnosis Chronic Problems Hypothyroidism (Chronic) Morbid obesity due to excess calories (Chronic) Persistent atrial fibrillation (Chronic) Nonrheumatic aortic (valve) stenosis (Chronic) Nonrheumatic pulmonary valve insufficiency (Chronic) Hypertension (Chronic) Diabetes mellitus type II, uncontrolled (Chronic) Hyperlipidemia (Chronic) Hospital Course and Treatment Imaging Results: Diagnostic Data Chest X-Ray 09/04/17 05:55 IMPRESSION: No acute findings in the lungs. No pleural effusions Electronically Signed: Arnulfo Norwood, at 6:10 EDT Tel , Service support , Dr. Deng- Cardiology Operations: None Procedures: None Summary of Care Provided: The patient is a 66 year old F admitted 09/03/17 due to palpitations, increased heart rate. Patient has a history of persistent atrial fibrillation with prior attempted cardioversion and was noted to be atrial fibrillation with RVR on admission. She received IV Cardizem. Her other past medical history includes valvular heart disease with pulmonic valve insufficiency and aortic valve stenosis, morbid obesity, hypothyroidism, hypertension, hyperlipidemia, type 2 diabetes mellitus, iron deficiency anemia, anxiety, depression. She had a recent admission in June 2017 secondary to fall which resulted in hematoma to thigh. She was previously on anticoagulation with Coumadin which has since been discontinued. Patient remains in atrial fibrillation. Her heart rate is now controlled. She will be discharged on Cardizem 180 mg daily and metoprolol 50 mg twice daily. She will follow-up with Dr. Holley in 1-2 weeks. Follow-up with primary care physician in 1 week. Patient was noted to have hypomagnesium which resolved after IV replacement. Patient had a recent echo June 2017 which showed EF 55%, mild tricuspid valve insufficiency, pulmonary artery systolic pressure 28 mmHg. Chest x-ray during admission shows no acute process. Patient denies chest pain, shortness of breath. Denies further palpitations. Patient seen and examined prior to discharge. Alert and oriented, no acute distress. Lungs clear, diminished. Heart rate controlled, remains in atrial fibrillation. + murmur. Abdomen soft, nontender, morbidly obese. +1 bilateral lower ankle edema. Normal affect. Vital signs stable. This patient was seen by JIM Addison under the supervision of Dr. Noguera. Discharge Diet: Low fat/ Low Cholesterol, 1800 Calorie Control Diet, Carb Control Diet Discharge Activity: Return to Normal Activity, - - Fall precautions. Call your doctor if you observe: Dizziness, Fainting spells, Chest pain, Increased palpitations (irregular heartbeat) Home Medications: Medications to take at Discharge Ergocalciferol [Vitamin D] 50,000 unit PO Q7D 09/21/15 Furosemide [Lasix] 20 mg PO DAILY 09/21/15 Levothyroxine Sodium [Synthroid] 125 mcg PO DAILY 09/21/15 Lorazepam [Ativan] 1 mg PO DAILY 09/21/15 Meclizine HCl [Antivert] 25 mg PO TID 09/21/15 Metformin HCl [Metformin HCl ER] 1,000 mg PO BID 09/21/15 Omeprazole [Prilosec] 20 mg PO DAILY 09/21/15 Potassium Chloride [K-Tab ER] 20 meq PO BID 09/21/15 traZODone [Desyrel] 100 mg PO QHS 09/21/15 Levetiracetam 500 mg PO BID 06/28/16 Meloxicam [Mobic] 7.5 mg PO DAILY 06/28/16 Venlafaxine HCl [Effexor] 75 mg PO BID 06/28/16 Glimepiride [Amaryl] 4 mg PO BID 10/01/16 Nystatin Powder [Mycostatin Powder] 1 applic TOPICAL BID PRN PRN 10/01/16 Albuterol IH (ProAir) [Proair Hfa] 2 puff INHALATION BID 06/29/17 Famotidine [Pepcid] 40 mg PO DAILY 06/29/17 Oxycodone [Oxyir] 5 mg PO Q4H PRN PRN #20 tab 06/30/17 Atorvastatin Calcium 80 mg PO QHS 09/04/17 Diclofenac Sodium 25 mg PO BID 09/04/17 Diltiazem CD [Cardizem CD] 180 mg PO DAILY #30 cap 06/11/18 Docusate Sodium [Colace] 100 mg PO BID 09/04/17 Iron Polysaccharide Complex [Ferric X-150] 150 mg PO DAILY 09/04/17 Metoprolol Tartrate [Lopressor (beta erin)] 50 mg PO BID #60 tab 09/04/17 Paroxetine [Paxil] 40 mg PO QHS 09/04/17 Following Prescrptions Were Given to Patient: Diltiazem CD [Cardizem CD] 180 mg PO DAILY #30 cap Metoprolol Tartrate [Lopressor (beta erin)] 50 mg PO BID #60 tab Primary Care Physician: Marito De La Torre Chi, MD [Primary Care Provider] - Please follow up with your Primary Care Physician in: 1 Week Please Follow Up With: Troy Holley MD When: 1-2 Weeks, may see POSTDOCTORAL RESEARCH ASSOCIATE/PA Disposition: Home Minutes spent on discharge:: 35 Patient Condition:: Stable Medical Necessity - Tobacco Use Smoking Status: Never smoker Meaningful Use Info Meaningful Use Diagnoses (Choose all that apply): None applicable <Markus Noguera - Last Filed: 09/04/17 14:29> Discharge Date and Diagnosis - Secondary Discharge Diagnosis Chronic Problems Hypothyroidism (Chronic) Morbid obesity due to excess calories (Chronic) Persistent atrial fibrillation (Chronic) Nonrheumatic aortic (valve) stenosis (Chronic) Nonrheumatic pulmonary valve insufficiency (Chronic) Hypertension (Chronic) Diabetes mellitus type II, uncontrolled (Chronic) Hyperlipidemia (Chronic) Hospital Course and Treatment Imaging Results: 09/04/17 05:55 Chest PA and Lateral [RAD] Urgent Operations: None Procedures: None Summary of Care Provided: Patient seen and examined independently. Data reviewed. I agree with the above note by the POSTDOCTORAL RESEARCH ASSOCIATE. The patient is a 66 year old F presents with atrial fibrillation with RVR. Patient was started on Cardizem drip. Patient has been controlled with oral Cardizem as well as metoprolol. Patient will follow up with cardiology as outpatient. Patient is not a candidate for oral anticoagulation given fall risk at this time. [] Discharge Diet: Low fat/ Low Cholesterol, 1800 Calorie Control Diet, Carb Control Diet Discharge Activity: Return to Normal Activity, - Call your doctor if you observe: Dizziness, Fainting spells, Chest pain, Increased palpitations (irregular heartbeat) Disposition: Home Minutes spent on discharge:: 35 Patient Condition:: Stable Meaningful Use Info Meaningful Use Diagnoses (Choose all that apply): None applicable Code Visit Inpatient E&M: 12588 Disch Hosp
--- NOTE | 2017-09-04 12:55 | DS.PCM_ITS ---
<Jhoana Kulkarni - Last Filed: 09/04/17 12:56> Discharge Date and Diagnosis Date of Admission: 09/03/17 Date of Discharge: 09/04/17 - Primary Discharge Diagnosis 1. Persistent atrial fibrillation with RVR 2. Hypomagnesia-resolved. - Secondary Discharge Diagnosis Chronic Problems Hypothyroidism (Chronic) Morbid obesity due to excess calories (Chronic) Persistent atrial fibrillation (Chronic) Nonrheumatic aortic (valve) stenosis (Chronic) Nonrheumatic pulmonary valve insufficiency (Chronic) Hypertension (Chronic) Diabetes mellitus type II, uncontrolled (Chronic) Hyperlipidemia (Chronic) Hospital Course and Treatment Imaging Results: Diagnostic Data Chest X-Ray 09/04/17 05:55 IMPRESSION: No acute findings in the lungs. No pleural effusions Electronically Signed: Arnulfo Norwood, at 6:10 EDT Tel , Service support , Dr. Deng- Cardiology Operations: None Procedures: None Summary of Care Provided: The patient is a 66 year old F admitted 09/03/17 due to palpitations, increased heart rate. Patient has a history of persistent atrial fibrillation with prior attempted cardioversion and was noted to be atrial fibrillation with RVR on admission. She received IV Cardizem. Her other past medical history includes valvular heart disease with pulmonic valve insufficiency and aortic valve stenosis, morbid obesity, hypothyroidism, hypertension, hyperlipidemia, type 2 diabetes mellitus, iron deficiency anemia, anxiety, depression. She had a recent admission in June 2017 secondary to fall which resulted in hematoma to thigh. She was previously on anticoagulation with Coumadin which has since been discontinued. Patient remains in atrial fibrillation. Her heart rate is now controlled. She will be discharged on Cardizem 180 mg daily and metoprolol 50 mg twice daily. She will follow-up with Dr. Holley in 1-2 weeks. Follow-up with primary care physician in 1 week. Patient was noted to have hypomagnesium which resolved after IV replacement. Patient had a recent echo June 2017 which showed EF 55%, mild tricuspid valve insufficiency, pulmonary artery systolic pressure 28 mmHg. Chest x-ray during admission shows no acute process. Patient denies chest pain, shortness of breath. Denies further palpitations. Patient seen and examined prior to discharge. Alert and oriented, no acute distress. Lungs clear, diminished. Heart rate controlled, remains in atrial fibrillation. + murmur. Abdomen soft, nontender, morbidly obese. +1 bilateral lower ankle edema. Normal affect. Vital signs stable. This patient was seen by JIM Addison under the supervision of Dr. Noguera. Discharge Diet: Low fat/ Low Cholesterol, 1800 Calorie Control Diet, Carb Control Diet Discharge Activity: Return to Normal Activity, - - Fall precautions. Call your doctor if you observe: Dizziness, Fainting spells, Chest pain, Increased palpitations (irregular heartbeat) Home Medications: Medications to take at Discharge Ergocalciferol [Vitamin D] 50,000 unit PO Q7D 09/21/15 Furosemide [Lasix] 20 mg PO DAILY 09/21/15 Levothyroxine Sodium [Synthroid] 125 mcg PO DAILY 09/21/15 Lorazepam [Ativan] 1 mg PO DAILY 09/21/15 Meclizine HCl [Antivert] 25 mg PO TID 09/21/15 Metformin HCl [Metformin HCl ER] 1,000 mg PO BID 09/21/15 Omeprazole [Prilosec] 20 mg PO DAILY 09/21/15 Potassium Chloride [K-Tab ER] 20 meq PO BID 09/21/15 traZODone [Desyrel] 100 mg PO QHS 09/21/15 Levetiracetam 500 mg PO BID 06/28/16 Meloxicam [Mobic] 7.5 mg PO DAILY 06/28/16 Venlafaxine HCl [Effexor] 75 mg PO BID 06/28/16 Glimepiride [Amaryl] 4 mg PO BID 10/01/16 Nystatin Powder [Mycostatin Powder] 1 applic TOPICAL BID PRN PRN 10/01/16 Albuterol IH (ProAir) [Proair Hfa] 2 puff INHALATION BID 06/29/17 Famotidine [Pepcid] 40 mg PO DAILY 06/29/17 Oxycodone [Oxyir] 5 mg PO Q4H PRN PRN #20 tab 06/30/17 Atorvastatin Calcium 80 mg PO QHS 09/04/17 Diclofenac Sodium 25 mg PO BID 09/04/17 Diltiazem CD [Cardizem CD] 180 mg PO DAILY #30 cap 06/11/18 Docusate Sodium [Colace] 100 mg PO BID 09/04/17 Iron Polysaccharide Complex [Ferric X-150] 150 mg PO DAILY 09/04/17 Metoprolol Tartrate [Lopressor (beta erin)] 50 mg PO BID #60 tab 09/04/17 Paroxetine [Paxil] 40 mg PO QHS 09/04/17 Following Prescrptions Were Given to Patient: Diltiazem CD [Cardizem CD] 180 mg PO DAILY #30 cap Metoprolol Tartrate [Lopressor (beta erin)] 50 mg PO BID #60 tab Primary Care Physician: Marito De La Torre Chi, MD [Primary Care Provider] - Please follow up with your Primary Care Physician in: 1 Week Please Follow Up With: Troy Holley MD When: 1-2 Weeks, may see B[facility] HAND/PA Disposition: Home Minutes spent on discharge:: 35 Patient Condition:: Stable Medical Necessity - Tobacco Use Smoking Status: Never smoker Meaningful Use Info Meaningful Use Diagnoses (Choose all that apply): None applicable <Markus Noguera - Last Filed: 09/04/17 14:29> Discharge Date and Diagnosis - Secondary Discharge Diagnosis Chronic Problems Hypothyroidism (Chronic) Morbid obesity due to excess calories (Chronic) Persistent atrial fibrillation (Chronic) Nonrheumatic aortic (valve) stenosis (Chronic) Nonrheumatic pulmonary valve insufficiency (Chronic) Hypertension (Chronic) Diabetes mellitus type II, uncontrolled (Chronic) Hyperlipidemia (Chronic) Hospital Course and Treatment Imaging Results: 09/04/17 05:55 Chest PA and Lateral [RAD] Urgent Operations: None Procedures: None Summary of Care Provided: Patient seen and examined independently. Data reviewed. I agree with the above note by the BASE [facility]Y HAND. The patient is a 66 year old F presents with atrial fibrillation with RVR. Patient was started on Cardizem drip. Patient has been controlled with oral Cardizem as well as metoprolol. Patient will follow up with cardiology as outpatient. Patient is not a candidate for oral anticoagulation given fall risk at this time. [] Discharge Diet: Low fat/ Low Cholesterol, 1800 Calorie Control Diet, Carb Control Diet Discharge Activity: Return to Normal Activity, - Call your doctor if you observe: Dizziness, Fainting spells, Chest pain, Increased palpitations (irregular heartbeat) Disposition: Home Minutes spent on discharge:: 35 Patient Condition:: Stable Meaningful Use Info Meaningful Use Diagnoses (Choose all that apply): None applicable Code Visit Inpatient E&M: 60097 Disch Hosp
--- NOTE | 2017-09-04 13:04 | CASEMGMT ---
CASSY called [facility] and requested PT/OT for patient. SW let them know patient is being discharged today. CASSY faxed order, face sheet, and d/c instructions. CASSY called patient's Test Engineer, Ashlie and left her a voice mail letting her know patient is being discharged today and PT/OT was ordered for home. Patient asked about changing her power of research attorney as she did not want her daughter. CASSY told her that it is not always a good idea to change things in the heat of the moment. CASSY told her it may be best if she and her daughter talked and worked out their issues before changing power of research attorney. Plan: Home with resumption of waiver services as well as PT/OT through [facility]. Mlia ESCALERA MSW
[2017-09-04 14:00] VITALS: BP 109/58; PULSE 81; RESP 18; TEMP 36.6; O2SAT 99
--- NOTE | 2017-09-04 14:07 | NURSING ---
pt asked if we would call ex-, Adebayo, for transport. This RN called and stated that letha is ready for d/c and asking if he can come get her. Adebayo states Nope, she said she didn't want anything to do with us, so she can find her own way home.
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
--- NOTE | 2017-09-04 14:38 | NURSING ---
notified pt of what karlie stated. pt okay with notifying her that it's okay for missael to pick her up. called karlie to let her know.
[2017-09-05 07:47] LABS: Anion Gap 9 (5-15); BUN 16 mg/dL (7-18); BUN/Creat Ratio 16.3 RATIO (10-20); Calcium,Total 8.9 mg/dL (8.5-10.1); Chloride 109 mmol/L (98-107); Creatinine, Serum 0.98 mg/dL (0.55-1.02); EST Glomerular Filtration Rate 61 mL/min (>60); Est Glom Filt Rate - Afr Amer 74 mL/min (>60); Glucose 124 mg/dL (74-106); Magnesium 1.5 mg/dL (1.6-2.6); Potassium 3.5 mmol/L (3.5-5.1); Sodium Level 143 mmol/L (136-145); Thyroid Stim Hormone (TSH) 0.13 uIU/mL (0.358-3.74)
[2017-09-05 10:47] LABS: White Blood Count 13.4 K/mm3 (4.4-11.0)
[2017-09-05 10:48] LABS: Absolute Lymphocyte Count 2.72 X10^3/ul (0.83-4.51); Absolute Neutrophil Count 9.6 X10^3/uL (2.0-7.7); Basophil# 0.02 X10^3/uL; Basophil% 0.1 % (0-1); Eosinophil# 0.08 X10^3/uL; Eosinophils% 0.6 % (0-5); Hematocrit 38.7 % (37-47); Hemoglobin 12.1 g/dl (12.0-15.0); Lymphocyte # 2.72 X10^3/ul (4.0); Lymphocyte % 20.3 % (19-41); Mean Corp Hgb Conc 31.3 g/gl (32-36); Mean Corpuscular Volume 89.6 fL (81-99); Monocyte# 0.99 X10^3/uL; Monocyte% 7.4 % (0-10); Neutrophil # 9.55 X10^3/uL (2.7-7.7); Neutrophil % 71.2 % (47-70); POSITIVE COUNT NO; POSITIVE DIFFERENTIAL NO; POSITIVE MORPHOLOGY NO; Platelet Count 275 K/mm3 (150-450); RBC Distribution Width CV 14.6 % (11.6-14.6); RBC Distribution Width SD 47.4 fl (35.1-43.9); Red Blood Count 4.32 M/mm3 (4.2-5.4)
[2017-09-05 11:22] LABS: T4 Free Direct 1.51 ng/dL (0.76-1.46)
[2017-09-13 10:36] LABS: Bedside Glucose 118 mg/dL (70-110)
== END 2017-09-04 15:12 | disposition home health service (06) | DRG 138 ==
LOC: ED 21:33 → PCU 09-04 07:35
PROVIDERS: Admitting Provider Family Medicine; Emergency Provider Emergency Medicine; Family Provider Family Medicine Geriatric Medicine; PCP Family Medicine Geriatric Medicine
DX: I48.1 Persistent atrial fibrillation (principal); E11.65 Type 2 diabetes mellitus with hyperglycemia; I50.9 Heart failure, unspecified; E78.5 Hyperlipidemia, unspecified; E66.01 Morbid (severe) obesity due to excess calories; E03.9 Hypothyroidism, unspecified; F32.9 Major depressive disorder, single episode, unspecified; F41.9 Anxiety disorder, unspecified; I10 Essential (primary) hypertension; E83.42 Hypomagnesemia; Z68.42 Body mass index [BMI] 45.0-49.9, adult; Z71.3 Dietary counseling and surveillance
CPT/HCPCS: 36415; 71045; 71046; 80048; 80061; 82962; 83735; 84439; 84443; 84484; 85025; 93005; 97802; 99285; J7030; A4216

== ENCOUNTER → 2017-09-12 13:20 | Outpatient (CLI) | payer MEDICAID, SELFPAY ==
[2017-09-12 17:37] LABS: Absolute Lymphocyte Count 1.98 X10^3/ul (0.83-4.51); Absolute Neutrophil Count 9.5 X10^3/uL (2.0-7.7); Basophil# 0.03 X10^3/uL; Basophil% 0.2 % (0-1); Eosinophil# 0.15 X10^3/uL; Eosinophils% 1.2 % (0-5); Hematocrit 38.5 % (37-47); Hemoglobin 11.7 g/dl (12.0-15.0); Lymphocyte # 1.98 X10^3/ul (4.0); Mean Corp Hgb Conc 30.4 g/gl (32-36); Mean Corpuscular Hgb 27.7 pg (27.0-32.0); Mean Corpuscular Volume 91.2 fL (81-99); Mean Platelet Vol. 10.3 fl (6.2-12.0); Monocyte# 0.73 X10^3/uL; Monocyte% 5.9 % (0-10); Neutrophil # 9.47 X10^3/uL (2.7-7.7); Neutrophil % 76.3 % (47-70); Platelet Count 275 K/mm3 (150-450); RBC Distribution Width CV 14.6 % (11.6-14.6); RBC Distribution Width SD 47.3 fl (35.1-43.9); Red Blood Count 4.22 M/mm3 (4.2-5.4); White Blood Count 12.4 K/mm3 (4.4-11.0)
[2017-09-12 17:40] LABS: POSITIVE COUNT NO; POSITIVE DIFFERENTIAL NO; POSITIVE MORPHOLOGY NO
[2017-09-12 18:00] LABS: ALB/GLOB Ratio 0.6 RATIO (0.9-2.4); AST(SGOT) 9 U/L (15-37); Alanine Aminotransfer ALT/SGPT 23 U/L (13-56); Alkaline Phosphatase 117 U/L (45-117); Anion Gap 8 (5-15); BUN 15 mg/dL (7-18); BUN/Creat Ratio 16.6 RATIO (10-20); Chloride 106 mmol/L (98-107); EST Glomerular Filtration Rate 67 mL/min (>60); Est Glom Filt Rate - Afr Amer 81 mL/min (>60); Globulin 4.7 g/dL (2.2-4.2); Glucose 125 mg/dL (74-106); Potassium 4.3 mmol/L (3.5-5.1); Protein, Total 7.7 g/dL (6.4-8.2); Sodium Level 141 mmol/L (136-145); Thyroid Stim Hormone (TSH) 0.39 uIU/mL (0.358-3.74)
[2017-09-13 08:42] LABS: Vitamin D,25 Hydroxy 71.2 ng/mL (29.95-100.01)
== END ==
PROVIDERS: Family Provider Family Medicine Geriatric Medicine; PCP Family Medicine Geriatric Medicine; Visit Provider Family Medicine Geriatric Medicine
DX: E11.9 Type 2 diabetes mellitus without complications (principal); E03.9 Hypothyroidism, unspecified; I10 Essential (primary) hypertension; E55.9 Vitamin D deficiency, unspecified
CPT/HCPCS: 36415; 80053; 82306; 84443; 85025

== ENCOUNTER 2017-09-23 22:13 | Emergency (ER) | payer MEDICAID, SELFPAY ==
[2017-09-23 22:14] VITALS: BP 131/69; PULSE 80; RESP 16; TEMP 36.6; O2SAT 95; BMI 47.2
--- NOTE | 2017-09-23 22:41 | EKG12_ITS ---
Test Reason : CP Blood Pressure : / mmHG Vent. Rate : 065 BPM Atrial Rate : 060 BPM P-R Int : 000 ms QRS Dur : 086 ms QT Int : 432 ms P-R-T Axes : 000 -05 -32 degrees QTc Int : 449 ms Atrial fibrillation Abnormal ECG Confirmed by FERCHO GALVAN MD ([id number]), general expeditor MARCIAL GUILLEN ([id number]) on 09/28/2017 3:35:37 PM Referred By: Marito De La Torre Confirmed By:FERCHO GALVAN MD
--- NOTE | 2017-09-23 22:42 | RAD_ITS ---
STUDY: X-RAY CHEST REASON FOR EXAM: Female, 66 years old. Chest pain, palpitations TECHNIQUE: A single frontal view of the chest was obtained. COMPARISON: September 04, 2017 FINDINGS: The lungs are underaerated. There are no focal airspace opacities. There is no demonstrated pleural abnormality. There is mild enlargement of the cardiac silhouette. The mediastinum and hilar regions are unremarkable. There is enlargement of the main pulmonary artery. Normal visualized aortic arch and descending thoracic aorta. There is dextroscoliosis of the thoracic spine. There are vertebroplasty changes in L1. There are degenerative changes in both shoulders. There is no demonstrated abnormality of the visualized upper abdomen. RAD/Chest 1 View (Portable) IMPRESSION: There is mild enlargement of the cardiac silhouette without edema or effusion. This is likely exaggerated by low volume inspiration. There is stable enlargement of the main pulmonary artery. Electronically Signed: Ashlie Rivera MD at 23:34 EDT Tel Direct: [phone], Service support ,
[2017-09-23 23:14] VITALS: BP 122/78; PULSE 74; RESP 15; O2SAT 97
[2017-09-23 23:18] LABS: Absolute Lymphocyte Count 2.33 X10^3/ul (0.83-4.51); Basophil# 0.05 X10^3/uL; Basophil% 0.3 % (0-1); Eosinophil# 0.16 X10^3/uL; Eosinophils% 1.1 % (0-5); Hematocrit 38.3 % (37-47); Hemoglobin 12.2 g/dl (12.0-15.0); Lymphocyte # 2.33 X10^3/ul (4.0); Lymphocyte % 15.9 % (19-41); Mean Corp Hgb Conc 31.9 g/gl (32-36); Mean Corpuscular Hgb 28.2 pg (27.0-32.0); Mean Corpuscular Volume 88.7 fL (81-99); Mean Platelet Vol. 9.5 fl (6.2-12.0); Monocyte# 1.02 X10^3/uL; Neutrophil # 10.99 X10^3/uL (2.7-7.7); Neutrophil % 75.3 % (47-70); Platelet Count 316 K/mm3 (150-450); RBC Distribution Width CV 14.6 % (11.6-14.6); Red Blood Count 4.32 M/mm3 (4.2-5.4); White Blood Count 14.6 K/mm3 (4.4-11.0)
[2017-09-23 23:19] LABS: POSITIVE COUNT NO; POSITIVE DIFFERENTIAL NO; POSITIVE MORPHOLOGY NO
[2017-09-23 23:48] LABS: Anion Gap 9 (5-15); BUN 13 mg/dL (7-18); BUN/Creat Ratio 11.3 RATIO (10-20); Chloride 108 mmol/L (98-107); Creatinine, Serum 1.15 mg/dL (0.55-1.02); EST Glomerular Filtration Rate 50 mL/min (>60); Est Glom Filt Rate - Afr Amer 61 mL/min (>60); Estimated Creatinine Clearance 42.68 ml/min; Glucose 151 mg/dL (74-106); Potassium 3.8 mmol/L (3.5-5.1); Sodium Level 142 mmol/L (136-145)
--- NOTE | 2017-09-23 23:50 | ED.VISSUMM ---
- ER Visit Summary Date of Service: 09/23/17 Chief Complaint: Chest pain History of Present Illness: The patient is a [address] De La Torre. She reports that she has chest pain that began at 9:00 this morning. It is been continuous for the past 13 hours. States that it is just there. It is 3 out of 10 at worst and 2 out of 10 currently. It is worsened by stress at home and she reports she has been arguing with her family all day. States that is relieved by watching TV. She reports she is nauseated and short of breath at times. This is not related to exertion. Patient does admit to being depressed. However, she denies any suicidal ideation. She denies any homicidal ideation. On review of systems patient does complain of occasional cough that is chronic and unchanged. She reports she has a headache that is 2 out of 10 in severity. Physical Examination: Vitals: Stable. Afebrile. General: Well-nourished and well-developed. Head: Normocephalic atraumatic. Neck: Supple, no lymphadenopathy. No JVD. Nontender. Cardiovascular: Regular rate and rhythm. No murmurs. Respiratory: No respiratory distress. Clear to auscultation bilaterally. Abdominal: Soft, nontender, nondistended, normal bowel sounds. No guarding, rebound, or peritoneal signs. Back: Nontender. Extremities: Nontender, no edema. Skin: Normal color, no rash. Neurologic: Alert and oriented ?3. Cranial nerves II through XII are intact. Normal strength and sensation. Mental status exam: Patient appears their stated age. Good posture and grooming. Good eye contact. Normal rate, volume, and latency of speech. No suicidal or homicidal ideation. No auditory or visual hallucinations. Flow of thought is logical. Insight and judgment is fair. Test Results: Chest x-ray shows cardiomegaly and poor inspiration with no acute disease. EKG is A. fib at 65 with no acute changes. Is unchanged from earlier this month. Troponin is negative despite greater than 13 hours of constant pain. Chem-7 more for chloride 108, creatinine 1.15, glucose 151. CBC is marked for white count of 14.6 with 75 segmented neutrophils and 16 lymphocytes. Emergency Department Course and Treatment: Patient is resting comfortably throughout the emerge part without complaint. Treatment Plan: Patient was seen by the counseling center. She does not meet any criteria for admission to a psychiatric facility. She will be discharged with instructions to follow-up Dr. Weir in 1-2 days not improving. Follow-up the counseling center spelled soon as possible. Return to the emergency department for any worsening symptoms. Disposition: To home in improved and stable condition. Impression: 1. Atypical chest pain. 2. Depression. 3. JB score of 1. This note was generated with [employer] dictation software. It may contain incorrect words, spelling, and punctuation that were not noted in review of the chart prior to signing ED Disposition - Plan for ED Patient: Disposition: Home or Assisted Living Chief Complaint: Chest Pain Instructions: ED Chest Pain Atypical Unkn Cause Referrals: Marito De La Torre Chi, MD [Primary Care Provider] - 1-2 Days if not improving Counseling,Center [GROUP OF PHYSICIANS] - As soon as possible
[2017-09-24 01:42] VITALS: RESP 18; O2SAT 96
[2017-09-24] MEDS: Aspirin 81 MG TAB.CHEW 324 MG PO (01:42)
--- NOTE | 2017-09-24 03:02 | ED.RN ---
patient has made several attempts to contact and ride at this time for discharge. nursing staff has contacted who states that her ride doesn't live at his house. After tempting to call back phone is now off the hook and unable to call back. Patient made aware and not happy about this. At this time patient has no money for taxi ride, unable to find a ride, decision made to allow patient to sit in room until ride can be obtained. Patient upset at this and wants to walk home. Advised patient this wasn't a good idea since she lives over 20 miles away. Patient upset and refuses to stay. Patient assisted to door. Pt able to walk. Pt assisted to the waiting room at this time due to shortness of breath. Pt advised that she can stay in the waiting room and not attempt to walk home anymore. Pt still upset and stating she will leave when she is ready.
[2017-09-24 03:15] VITALS: RESP 18; O2SAT 96
== END 2017-09-24 03:16 | disposition home or self-care (01) ==
LOC: ED 22:50
PROVIDERS: Emergency Provider Emergency Medicine; Family Provider Family Medicine Geriatric Medicine; PCP Family Medicine Geriatric Medicine
DX: R07.89 Other chest pain (principal); F32.9 Major depressive disorder, single episode, unspecified; I51.7 Cardiomegaly; I48.91 Unspecified atrial fibrillation; R11.0 Nausea; R05 Cough; R51 Headache; E11.9 Type 2 diabetes mellitus without complications; I10 Essential (primary) hypertension; E78.00 Pure hypercholesterolemia, unspecified; E03.9 Hypothyroidism, unspecified
CPT/HCPCS: 71045; 80048; 84484; 85025; 93005; 99285; A4216

== ENCOUNTER → 2018-11-19 06:54 | Outpatient (CLI) | payer MEDICAID, SELFPAY ==
--- NOTE | 2018-11-23 10:21 | EEG ---
- Electroencephalogram Date of service 11/19/2018 History EEG is being done in this 68 yr F to rule out seizures EEG Description: This is an 18 channel EEG with 10-20 lead placement system. Bipolar montages, and Referential montages were reviewed. Photic stimulation and Hyperventilation were performed. The posterior dominant rhythm is 7 HZ synchronous, symmetric, reacting to eye opening and closing. Photo stimulation elicited normal driving response but no abnormal photoparoxysmal response, Hyperventilation did not elicit any abnormal photoparoxysmal response. Sleep was identified. There is abnormal generalized background slowing in the theta frequency range noted. There was no epileptiform discharges or electrographic seizures noted during this recording.There is presence of FIRDA (frontal intermittent rhythmic delta activity) noted during the record EEG Interpretation This is an abnormal EEG due to presence of mild generalized background slowing as well as due to the presence of FIRDA. Recommend neuroimaging in form of MRI brain if not already done. The generalized background slowing may also be seen with generalized cerebral dysfunction like metabolic/toxic encephalopathy. Clinical correlation is advised. There is no epileptiform discharges or electrographic seizures noted during the record.
== END ==
PROVIDERS: Family Provider Student in an Organized Health Care Education/Training Program; PCP Student in an Organized Health Care Education/Training Program; Referring Provider Psychiatry & Neurology Sleep Medicine; Visit Provider Psychiatry & Neurology Sleep Medicine
DX: R41.82 Altered mental status, unspecified (principal)
CPT/HCPCS: 95819